=== PATIENT | female | born 1935 | race Caucasian/White ===

== ENCOUNTER 2016-08-28 10:30 | Outpatient (CLI) | payer MEDICARE | END 2016-08-28 10:31 | disposition home or self-care (01) | LOC: LAB.R 10:30 | PROVIDERS: ATTEND Family Medicine | DX: J31.0 Chronic rhinitis (principal) | CPT/HCPCS: 87640 ==

== ENCOUNTER 2016-12-26 08:06 | Outpatient (CLI) | payer MEDICARE ==
[2016-12-26 13:42] LABS: BASOPHILS % (AUTO) 0.9 %; EOSINOPHILS # (AUTO) 0.3 10^3/uL (0.0-0.7); EOSINOPHILS % (AUTO) 4.7 %; HCT - HEMATOCRIT 40.5 % (37.0-47.0); HGB - HEMOGLOBIN 13.1 g/dL (12.0-16.0); LYMPHOCYTES # (AUTO) 2.1 10^3/uL (1.5-3.5); LYMPHOCYTES % (AUTO) 36.4 %; MEAN CORPUSCULAR HEMOGLOBIN 28.8 pg (27.0-31.0); MEAN CORPUSCULAR HGB CONC 32.3 g/dL (32.0-36.0); MEAN CORPUSCULAR VOLUME 89.2 fL (81.0-99.0); MEAN PLATELET VOLUME 9.1 fL (7.9-10.8); MONOCYTES # (AUTO) 0.4 10^3/uL (0.0-1.0); MONOCYTES % (AUTO) 7.8 %; NEUTROPHILS # (AUTO) 2.8 10^3/uL (1.5-6.6); NEUTROPHILS % (AUTO) 50.2 %; NUCLEATED RED BLOOD CELLS AUTO 0.1 /100WBC; RED BLOOD COUNT 4.53 10^6/uL (4.20-5.40); RED CELL DISTRIBUTION WIDTH 14.4 % (12.0-15.0); UNCORRECTED WHITE BLOOD COUNT 5.6 x10^3/uL; WHITE BLOOD COUNT 5.6 x10^3/uL (4.8-10.8)
[2016-12-26 14:23] LABS: ALBUMIN/GLOBULIN RATIO 1.5 (1.0-2.2); BILIRUBIN,TOTAL 0.5 mg/dL (0.2-1.0); BUN - BLOOD UREA NITROGEN 16 mg/dL (6-20); CARBON DIOXIDE - CO2 27 mmol/L (21-32); CHLORIDE 105 mmol/L (101-111); CHOL/HDL RATIO 2.5 (<4.4); CHOLESTEROL 145 mg/dL; CREATININE 0.8 mg/dL (0.4-1.0); GFR - MDRD 69 (>89); GLUCOSE 94 mg/dL (70-100); HDL CHOLESTEROL 58 mg/dL; LDL/HDL RATIO 1.3 (<4.4); POTASSIUM 4.3 mmol/L (3.5-5.0); SODIUM 139 mmol/L (135-145); TOTAL PROTEIN 6.4 g/dL (6.7-8.2); TRIGLYCERIDES 59 mg/dL; VLDL CHOLESTEROL 12 mg/dL
== END 2016-12-26 08:07 | disposition home or self-care (01) ==
LOC: LAB.WCP 08:06
PROVIDERS: ATTEND Family Medicine
DX: I10 Essential (primary) hypertension (principal); E78.5 Hyperlipidemia, unspecified
CPT/HCPCS: 36415; 80053; 80061; 85025

== ENCOUNTER 2017-01-06 10:28 | Outpatient (CLI) | payer MEDICARE ==
--- NOTE | 2017-01-08 08:33 | Mammography Report ---
WAS FLAGGED FOR "WHICH NORMAL BILAT. SCR. MAMMOGRAM" WITH COMPARISON=B(FATTY 1B, FIBROGLANDULAR 2B, HETEROGENEOUS 3B, EXTREMELY DENSE = 4B DIGITAL BILATERAL SCREENING MAMMOGRAM: 01/06/2017 COMPARISON STUDY: Mammogram 12/05/2015. CLINICAL INDICATION: Screening Mammography Technique: Bilateral MLO and CC breast views. Ther are scattered fibroglandular densities. There is no mass, architectural distortion, or concerning cluster of microcalcifications. There are stable postoperative changes of the left breast. IMPRESSION: BIRADS CATEGORY 2, BENIGN FINDINGS. Recommend annual screening mammogram. JOB #: [id number] EXT JOB #: [id number] [email or web address]
== END 2017-01-06 10:29 | disposition home or self-care (01) ==
LOC: DI.N 10:28
PROVIDERS: ATTEND Family Medicine
DX: Z12.31 Encounter for screening mammogram for malignant neoplasm of breast (principal)
CPT/HCPCS: 77067

== ENCOUNTER 2017-04-28 08:00 | Outpatient (CLI) | payer MEDICARE ==
[2017-04-28 19:02] LABS: BASOPHILS % (AUTO) 0.7 %; EOSINOPHILS # (AUTO) 0.2 10^3/uL (0.0-0.7); EOSINOPHILS % (AUTO) 2.8 %; HGB - HEMOGLOBIN 13.8 g/dL (12.0-16.0); LYMPHOCYTES # (AUTO) 2.7 10^3/uL (1.5-3.5); LYMPHOCYTES % (AUTO) 41.6 %; MEAN CORPUSCULAR HEMOGLOBIN 28.3 pg (27.0-31.0); MEAN CORPUSCULAR VOLUME 88.3 fL (81.0-99.0); MEAN PLATELET VOLUME 8.8 fL (7.9-10.8); MONOCYTES # (AUTO) 0.4 10^3/uL (0.0-1.0); MONOCYTES % (AUTO) 6.3 %; NEUTROPHILS # (AUTO) 3.1 10^3/uL (1.5-6.6); NEUTROPHILS % (AUTO) 48.6 %; PLT - PLATELET COUNT 251 10^3/uL (130-450); RED BLOOD COUNT 4.89 10^6/uL (4.20-5.40); RED CELL DISTRIBUTION WIDTH 14.5 % (12.0-15.0); WHITE BLOOD COUNT 6.4 x10^3/uL (4.8-10.8)
[2017-04-28 19:32] LABS: BUN - BLOOD UREA NITROGEN 23 mg/dL (6-20); CALCIUM 9.1 mg/dL (8.5-10.3); CARBON DIOXIDE - CO2 28 mmol/L (21-32); CHLORIDE 107 mmol/L (101-111); CREATININE 0.9 mg/dL (0.4-1.0); GFR - MDRD 60 (>89); GLUCOSE 97 mg/dL (70-100); SODIUM 141 mmol/L (135-145); URIC ACID 5.3 mg/dL (2.6-7.2)
[2017-04-28 19:33] LABS: CRP - C-REACTIVE PROTEIN < 1.0 mg/dL (0-1.0)
== END 2017-04-28 08:01 | disposition home or self-care (01) ==
LOC: LAB.WCP 08:00
PROVIDERS: ATTEND Family Medicine
DX: M79.676 Pain in unspecified toe(s) (principal); R51 Headache
CPT/HCPCS: 36415; 80048; 84550; 85025; 85651; 86140

== ENCOUNTER 2017-05-05 07:45 | Outpatient (CLI) | payer MEDICARE ==
--- NOTE | 2017-05-05 09:36 | MRI Report ---
EXAM: MRI BRAIN WITHOUT CONTRAST EXAM DATE: 05/05/2017 08:29 AM. CLINICAL HISTORY: 81-year-old woman with headache and TIAs. COMPARISON: 03/21/2007. TECHNIQUE: Multiplanar, multisequence T1-weighted and fluid-sensitive MR sequences of the brain were performed. Sequences optimized for routine evaluation. Other: None. IV Contrast: None. FINDINGS: Parenchyma: No evidence of acute infarct on diffusion weighted sequence. The parenchyma demonstrates multiple foci of FLAIR hyperintensity in the periventricular and deep cerebral white matter. One lesi on in particular in the right frontal periventricular white matter is round and demonstrates prominen t T1 hypointensity, consistent with remote lacunar infarct or demyelinating plaque. The infratentoria l parenchyma is normal in appearance. No evidence of prior hemorrhage on susceptibility weighted sequ ence. Pituitary: Unremarkable. Ventricles and Extra-axial Spaces: Ventricles are symmetric and normal in size for age. Extra-axial s paces are unremarkable. Orbits: Unremarkable. Sinuses: Paranasal sinuses and mastoid air cells are clear. Major Vascular Flow Voids: Intact. IMPRESSION: 1. No acute intracranial abnormalities. Specifically, no evidence of acute infarct, hemorrhage, or ma ss lesion. 2. Multiple foci of FLAIR hyperintensity are present in the periventricular and deep cerebral white m atter, a nonspecific finding commonly seen in this age group. 1 in particular in the right frontal lo be may represent a remote lacunar infarct or demyelinating plaque. [facility] Referring Provider Line: [phone] SITE ID: [id number]
== END 2017-05-05 07:46 | disposition home or self-care (01) ==
LOC: DI 07:45
PROVIDERS: ATTEND Family Medicine
DX: R51 Headache (principal); Z86.73 Personal history of transient ischemic attack (TIA), and cerebral infarction without residual deficits
CPT/HCPCS: 70551

== ENCOUNTER 2018-01-14 10:25 | Outpatient (CLI) | payer MEDICARE ==
[2018-01-14 18:17] LABS: CALCIUM 9.1 mg/dL (8.5-10.3); CREATININE 0.6 mg/dL (0.4-1.0)
== END 2018-01-14 10:26 | disposition home or self-care (01) ==
LOC: LAB 10:25
PROVIDERS: ATTEND Nurse Practitioner
DX: R00.2 Palpitations (principal); M79.605 Pain in left leg; R06.02 Shortness of breath
CPT/HCPCS: 36415; 80048

== ENCOUNTER 2018-01-14 17:48 | Outpatient (CLI) | payer MEDICARE ==
[2018-01-14] MEDS ORDERED: IOPAMIDOL-300 100 ML VIAL ONE (18:27)
[2018-01-14] MEDS ORDERED: IOPAMIDOL-300 100 ML VIAL IVP ONE (18:46)
--- NOTE | 2018-01-14 19:06 | CT Report ---
Reason: PALPITATIONS, LEG PAIN, LEFT, SOB Procedure Date: 01/14/2018 Accession Number: [id number] / [id number] Procedure: CT - Chest Angio (PE) CPT Code: FULL RESULT: EXAM: CT ANGIOGRAM CHEST EXAM DATE: 01/14/2018 06:44 PM. CLINICAL HISTORY: Palpitations, left leg pain, shortness of breath. COMPARISON: None. TECHNIQUE: Routine helical imaging was performed through the chest in the pulmonary arterial phase. IV Contrast: ISOVUE 300 80mL. Reconstructions: Coronal 3-D MIP reconstructions.Sagittal and coronal. In accordance with CT protocol optimization, one or more of the following dose reduction techniques were utilized for this exam: automated exposure control, adjustment of mA and/or KV based on patient size, or use of iterative reconstructive technique. FINDINGS: Pulmonary Arteries: Diagnostic quality: Adequate through the segmental arteries. No evidence for acute or chronic pulmonary emboli. RV/LV is within normal limits. There is no interventricular septal bowing. There is no reflux of contrast material in the IVC. Lungs/Pleura: There is elevation of the right hemidiaphragm with atelectatic changes at the lung base. There is a calcified right lower lobe granuloma. The lungs demonstrate mosaic attenuation; however, no confluent consolidation. No suspicious lung nodules. No pleural effusion or pneumothorax. Mediastinum: Normal heart size. No pericardial effusion. Calcified mediastinal lymph nodes noted. Thoracic Aorta: Unremarkable. Upper Abdomen: The gallbladder has been removed. Other: Enlarged right thyroid lobe. IMPRESSION: 1. No pulmonary embolism. 2. Nonspecific mosaic lung attenuation. Differential considerations include, but not limited to air trapping, edema and groundglass opacities secondary to infectious/inflammatory etiologies. 4. Enlarged right thyroid lobe. [facility]
--- NOTE | 2018-01-14 21:08 | Ultrasound Report ---
Reason: PALPITATIONS, LEG PAIN, LEFT, SOB Procedure Date: 01/14/2018 Accession Number: [id number] / [id number] Procedure: US - Duplex Ext Veins Left CPT Code: FULL RESULT: EXAM: LEFT LOWER EXTREMITY VENOUS ULTRASOUND EXAM DATE: 01/14/2018 08:06 PM. CLINICAL HISTORY: Left leg pain. Shortness of breath. Palpitations. COMPARISON: None. TECHNIQUE: Real-time sonographic vascular imaging was performed by the [employer] operator through the lower extremity utilizing both color-flow and Doppler spectral analysis. Multiple customer support representative static images were saved for review. FINDINGS: Common Femoral Vein (CFV): Normal. CFV-GSV Junction: Normal. Profunda Femoral Vein (PFV): Normal. Femoral Vein (FV) Prox: Normal. Femoral Vein (FV) Mid: Limited visualization. Femoral Vein (FV) Dist: Limited visualization. Popliteal Vein: Normal. Posterior Tibial Veins: Limited visualization. Peroneal Veins: Limited visualization. IMPRESSION: No evidence for deep venous thrombosis. [facility]
== END 2018-01-14 17:49 | disposition home or self-care (01) ==
LOC: DI 17:48
PROVIDERS: ATTEND Nurse Practitioner
DX: R00.2 Palpitations (principal); M79.605 Pain in left leg; R06.02 Shortness of breath; E04.9 Nontoxic goiter, unspecified
CPT/HCPCS: 36415; 71275; 80048; 93971; Q9967

== ENCOUNTER 2018-01-19 08:23 | Outpatient (CLI) | payer MEDICARE ==
--- NOTE | 2018-01-20 12:12 | XRAY Report ---
Reason: LEG PAIN,LEFT,DEGENERATIVE DISC DISEASE,LUMBAR SP Procedure Date: 01/19/2018 Accession Number: [id number] / [id number] Procedure: XR - Lumbar Spine 2 View CPT Code: FULL RESULT: EXAM: LUMBOSACRAL SPINE RADIOGRAPHY EXAM DATE: 01/19/2018 08:39 AM. CLINICAL HISTORY: Left legg pain. Degenerative lumbar disk disease. COMPARISONS: LUMBAR SPINE 2 VIEW 11/05/2015 3:06 PM. TECHNIQUE: 3 views. FINDINGS: Alignment: Severe lumbar levoconvex scoliosis centered about L3 appears similar to 2016. There is approximately 5 mm of retrolisthesis of L5 on L6. Bones: 6 dpo-hds-dbulahg lumbar vertebral bodies are present due to lumbarization of S1/L6. No fractures or bone lesions. Disks: There is multilevel loss of disk space height asymmetrically in keeping with severe scoliosis. Facets: Severe facet arthropathy is noted in the lower lumbar spine. Sacroiliac Joints: Unremarkable. Soft Tissues: There is marked aortic atherosclerosis. IMPRESSION: Redemonstration of severe levoconvex lumbar scoliosis. [facility]
--- NOTE | 2018-01-20 12:40 | XRAY Report ---
Reason: LEG PAIN,LEFT,DEGENERATIVE DISC DISEASE,LUMBAR SP Procedure Date: 01/19/2018 Accession Number: [id number] / [id number] Procedure: XR - Hip w/Pelvis 2-3V LT CPT Code: FULL RESULT: EXAM: LEFT HIP AND PELVIS RADIOGRAPHY EXAM DATE: 01/19/2018 08:39 AM. HISTORY: LEG PAIN,LEFT,DEGENERATIVE DISC DISEASE,LUMBAR SP. COMPARISONS: None. TECHNIQUE: 1 view of the pelvis and 1 view of the hip. FINDINGS: Bones: Transitional vertebra, with sacralization of the transverse process at L5 on the left.. No fracture or bone lesion. Joints: The bilateral hip, pubis symphysis, and sacroiliac joints are preserved. There is some sclerosis of the acetabular roofs, bilaterally. Some tiny osteophytes off of the acetabulum. Soft Tissues: Some calcifications in the pelvis may be phleboliths or vascular. IMPRESSION: Mild osteoarthritis of both hips, no fracture or dislocation. [facility]
== END 2018-01-19 08:24 | disposition home or self-care (01) ==
LOC: DI 08:23
PROVIDERS: ATTEND Nurse Practitioner
DX: M16.0 Bilateral primary osteoarthritis of hip (principal); M51.36 Other intervertebral disc degeneration, lumbar region; M47.9 Spondylosis, unspecified; M41.9 Scoliosis, unspecified
CPT/HCPCS: 72100

== ENCOUNTER 2018-02-16 17:32 | Outpatient (CLI) | payer MEDICARE ==
[2018-02-16] MEDS ORDERED: GADOBUTROL 7.5 MMOL/7.5 ML VIAL ONE (17:58)
[2018-02-16] MEDS ORDERED: GADOBUTROL 7.5 MMOL/7.5 ML VIAL IVP ONE (18:47)
--- NOTE | 2018-02-17 14:42 | MRI Report ---
Reason: LEG WEAKNESS, LEG PAIN, DDD, LEFT LEG Procedure Date: 02/16/2018 Accession Number: [id number] / [id number] Procedure: MRI - Lumbar Spine W/WO CPT Code: FULL RESULT: EXAM: MRI LUMBAR SPINE WITHOUT AND WITH CONTRAST EXAM DATE: 02/16/2018 07:06 PM. CLINICAL HISTORY: LEG WEAKNESS, LEG PAIN, DDD, LEFT LEG. COMPARISONS: LUMBAR SPINE 07/06/2008 10:19 AM. TECHNIQUE: Multiplanar, multisequence T1-weighted and fluid-sensitive sequences of the lumbar spine from T12 to S1 before and after administration of intravenous contrast. Other: None. IV contrast: 7.5 cc Gadavist. FINDINGS: Neurologic Structures: The conus terminates at L1. The conus medullaris and cauda equina are unremarkable. Alignment: 1. Levoscoliosis lumbar spine 36 degrees centered at L2, which is compared to the 26 degree levoscoliosis lumbar spine 07/06/2008. 2. Left lateral subluxation 1 cm L3 on L4. 3. Right lateral subluxation 6 mm L1 on L2. 4. Right lateral subluxation 9 mm L1 on L2. Bone Marrow: Five [id number] lumbar vertebral bodies are assumed. No gross fractures or bone lesions. Focal L2 vertebral body 1.8 cm well-marginated decreased marrow signal which enhances following intravenous contrast and corresponds to increased signal on the STIR sequence is strongly suspicious for metastasis and is new as compared to the MRI lumbar spine 07/06/2008. Disk Levels/Facets: T12-L1: Moderate right foraminal stenosis. Negative for central spinal canal stenosis. Moderate disk degeneration. L1-L2: Severe disk degeneration. Negative for spinal canal stenosis. Moderate right facet joint arthrosis. The left intervertebral foramen is negative for stenosis. Severe right foraminal stenosis from disk degeneration and facet hypertrophy. L2-L3: Severe disk degeneration. Retrolisthesis 3 mm L2 on L3. Severe right foraminal stenosis from disk degeneration and facet degenerative hypertrophy. Mild left foraminal stenosis. Moderate right facet joint arthrosis. Negative for central spinal canal stenosis. L3-L4: Moderate disk degeneration. Anterolisthesis of 3 mm L3 on L4. Severe right facet joint arthrosis. Severe left foraminal stenosis. Moderate right foraminal stenosis. Negative for spinal canal stenosis. L4-L5: Severe disk degeneration. Left laminectomy defect. Mild right foraminal stenosis from foraminal 3 mm disk protrusion osteophyte complex and disk degeneration. Moderate left foraminal stenosis from disk degeneration and facet hypertrophy. L5-S1: Severe disk degeneration. Severe bilateral foraminal stenosis. Left laminectomy defect. Mild facet joint arthrosis. Spinal Canal: No enhancing masses within the spinal canal. No epidural abscess. Musculature: Severe sacrum posterior left paraspinal muscle atrophy with fatty replacement. Other: The visualized retroperitoneum is unremarkable. Mid posterior left kidney 3.2 cm cyst. IMPRESSION: 1. Focal enhancing 1.8 cm nodule L2 vertebral body strongly suspicious for osseous metastasis. Correlate with cancer history. Consider nuclear medicine whole body bone scan to assess for additional metastasis. 2. Negative for spinal canal stenosis or foraminal stenosis. 3. Negative for enhancing leptomeningeal metastasis. 4. Levoscoliosis 36 degrees lumbar spine centered at L2. 5. Diffuse severe lumbar disk degeneration. 6. Severe right L1-L2, severe right L2-L3, severe left L3-L4, moderate right L3-L4, moderate left L4-L5 and severe bilateral L5-S1 foraminal stenosis. Comment: The following findings are so common in adults without low back pain that while we report their presence, they must be interpreted with caution and in the context of the clinical situation. (Reference Tyeshavik et al, Spine 2001) Prevalence of findings in patients without low back pain: Disk degeneration (any evidence): 92% Disk desiccation/T2 signal loss: 83% Disk height loss: 56% Disk bulge: 64% Disk protrusion: 32% Annular tear/high intensity zone: 38% [facility]
== END 2018-02-16 17:33 | disposition home or self-care (01) ==
LOC: DI 17:32
PROVIDERS: ATTEND Nurse Practitioner
DX: G83.14 Monoplegia of lower limb affecting left nondominant side (principal); M79.605 Pain in left leg; M51.36 Other intervertebral disc degeneration, lumbar region; M48.061 Spinal stenosis, lumbar region without neurogenic claudication; M41.86 Other forms of scoliosis, lumbar region; M89.8X8 Other specified disorders of bone, other site
CPT/HCPCS: 72158; A9585

== ENCOUNTER 2018-02-23 09:37 | Outpatient (CLI) | payer MEDICARE ==
[2018-02-23] MEDS ORDERED: IOVERSOL 320 100 ML VIAL IVP ONE ×2 (10:20→13:02)
[2018-02-23] MEDS ORDERED: IOVERSOL 320 50 ML VIAL ONE (10:20)
[2018-02-23 10:28] LABS: CALCIUM 9.1 mg/dL (8.5-10.3); CREATININE 0.8 mg/dL (0.4-1.0)
[2018-02-23] MEDS ORDERED: IOVERSOL 320 50 ML VIAL PO ONE (13:02)
--- NOTE | 2018-02-23 16:48 | CT Report ---
Reason: BONE LESION Procedure Date: 02/23/2018 Accession Number: [id number] / [id number] Procedure: CT - Abdomen/Pelvis W/ CPT Code: FULL RESULT: EXAM: CT ABDOMEN AND PELVIS EXAM DATE: 02/23/2018 11:43 AM. CLINICAL HISTORY: BONE LESION. COMPARISONS: LUMBAR SPINE W/WO 02/16/2018 6:21 PM. TECHNIQUE: Routine helical CT imaging was performed through the abdomen and pelvis. IV contrast: opti 320 90mL. Enteric contrast: No. Reconstructions: Coronal and sagittal. In accordance with CT protocol optimization, one or more of the following dose reduction techniques were utilized for this exam: automated exposure control, adjustment of mA and/or KV based on patient size, or use of iterative reconstructive technique. FINDINGS: Lung Bases: Linear consolidation at the right lung base in the setting of a partially imaged 1.5 cm right hilar calcification. This is possibly postobstructive atelectasis due to a calcified hilar lymph node. Correlate to history of prior granulomatous disease. Liver: Normal. No masses. Gallbladder/Bile Ducts: Mild intra-and extrahepatic biliary ductal dilation in the setting of status post cholecystectomy, possibly a normal finding. Spleen: Calcifications or evidence of prior granulomatous disease. Pancreas: Normal. Adrenal Glands: Normal. Kidneys: Bilateral renal cysts. No hydronephrosis or suspicious mass. Peritoneal Cavity/Bowel: Diverticulosis without diverticulitis. No free fluid, free air or adenopathy. No masses or acute inflammatory process. The appendix is well visualized and normal. Pelvic Organs: Normal. The bladder and visualized pelvic organs are within normal limits. Vasculature: No aneurysms or other significant abnormality. Bones: Severe levoconvex scoliosis centered about L2. The previously identified lesion on the February MRI is demonstrated to be osseous matrix poor and nonspecific. No additional osseous lesions are identified. Other: None. IMPRESSION: No suspicious primary soft tissue mass is seen. No additional osseous masses are identified. The etiology of the identified mass remains unclear. Please note that this mass was not definitely present on the 2008 lumbar spine MRI. Given these findings, further workup is recommended. Options include imaging of the remaining spine by MRI, short interval follow-up for change of the identified lesion or biopsy of the single identified lesion which is technically challenging. [facility] The above findings of possible osseous mass and its workup were discussed with Faith Allen by Dr. Beto Metzger at 16:46 hrs on 02/23/18.
== END 2018-02-23 09:38 | disposition home or self-care (01) ==
LOC: LAB 09:37 → DI 09:38
PROVIDERS: ATTEND Nurse Practitioner
DX: M89.9 Disorder of bone, unspecified (principal)
CPT/HCPCS: 36415; 74177; 80048; Q9967

== ENCOUNTER 2018-02-26 08:00 | Outpatient (CLI) | payer MEDICARE ==
[2018-02-26 13:20] LABS: BASOPHILS % (AUTO) 0.7 %; EOSINOPHILS # (AUTO) 0.2 10^3/uL (0.0-0.7); EOSINOPHILS % (AUTO) 3.4 %; HGB - HEMOGLOBIN 13.4 g/dL (12.0-16.0); LYMPHOCYTES # (AUTO) 2.7 10^3/uL (1.5-3.5); LYMPHOCYTES % (AUTO) 46.3 %; MEAN CORPUSCULAR HEMOGLOBIN 30.1 pg (27.0-31.0); MEAN CORPUSCULAR HGB CONC 33.7 g/dL (32.0-36.0); MEAN CORPUSCULAR VOLUME 89.3 fL (81.0-99.0); MEAN PLATELET VOLUME 9.6 fL (7.9-10.8); MONOCYTES # (AUTO) 0.4 10^3/uL (0.0-1.0); MONOCYTES % (AUTO) 6.4 %; NEUTROPHILS # (AUTO) 2.5 10^3/uL (1.5-6.6); NEUTROPHILS % (AUTO) 43.2 %; PLT - PLATELET COUNT 225 10^3/uL (130-450); RED BLOOD COUNT 4.44 10^6/uL (4.20-5.40); RED CELL DISTRIBUTION WIDTH 14.7 % (12.0-15.0); WHITE BLOOD COUNT 5.8 x10^3/uL (4.8-10.8)
[2018-02-26 14:15] LABS: ALBUMIN 4.1 g/dL (3.2-5.5); ALBUMIN/GLOBULIN RATIO 1.9 (1.0-2.2); BILIRUBIN,TOTAL 0.4 mg/dL (0.2-1.0); CALCIUM 9.1 mg/dL (8.5-10.3); CREATININE 0.8 mg/dL (0.4-1.0); TOTAL PROTEIN 6.3 g/dL (6.7-8.2)
== END 2018-02-26 23:59 | disposition home or self-care (01) ==
LOC: LAB.WCP 08:00
PROVIDERS: ATTEND Nurse Practitioner
DX: M89.9 Disorder of bone, unspecified (principal)
CPT/HCPCS: 36415; 80053; 84155; 84165; 85025

== ENCOUNTER 2018-03-04 08:00 | Outpatient (CLI) | payer MEDICARE | END 2018-03-04 23:59 | disposition home or self-care (01) | LOC: LAB.R 08:00 | PROVIDERS: ATTEND Nurse Practitioner | DX: M89.9 Disorder of bone, unspecified (principal) | CPT/HCPCS: 81599; 82570; 84156; 84166; 86335 ==

== ENCOUNTER 2018-03-23 07:36 | Outpatient (CLI) | payer MEDICARE ==
[2018-03-23] MEDS ORDERED: GADOBUTROL 7.5 MMOL/7.5 ML VIAL ONE (07:51)
[2018-03-23] MEDS ORDERED: GADOBUTROL 7.5 MMOL/7.5 ML VIAL IVP ONE (09:17)
--- NOTE | 2018-03-23 12:56 | MRI Report ---
Reason: BONE LESION,LEG WEAKNESS,LEFT,LEG PAIN,LEFT,LOW BA Procedure Date: 03/23/2018 Accession Number: [id number] / [id number] Procedure: MRI - Thoracic Spine W/WO CPT Code: FULL RESULT: EXAM: MRI THORACIC SPINE WITHOUT AND WITH CONTRAST EXAM DATE: 03/23/2018 10:19 AM. CLINICAL HISTORY: Bone lesion, low back pain. Left leg weakness. Left leg pain. COMPARISONS: MRI cervical spine and lumbar spine from today. TECHNIQUE: Multiplanar, multisequence T1-weighted and fluid-sensitive sequences of the thoracic spine from C7 to L1 before and after administration of intravenous contrast. Other: None. IV contrast: 7.5 mL Gadavist. FINDINGS: A T2 hyperintensity in each kidney might well reflect a cortical cyst. Intrahepatic and extrahepatic biliary duct dilatation is present. There is dilatation of the pancreatic duct. No abnormal T2 signal or enhancement is identified within the thoracic spinal cord. No suspicious marrow replacement is seen in the thoracic vertebral bodies. Rightward curvature is seen involving the lower thoracic spine and leftward curvature is seen involving the upper lumbar spine. Loss of disk space height is seen at multiple levels, most evident in the mid and lower thoracic spine Posterior disk protrusions are seen at multiple levels in the thoracic spine. This is greatest at T10-T11. No central canal stenosis is present in the thoracic spine. IMPRESSION: 1. Posterior disk protrusions are seen at multiple levels most evident at T10-T11. 2. No central canal or foraminal stenosis. 3. No suspicious marrow replacement is present. 4. No abnormal signal or enhancement is seen the thoracic spinal cord. 5. S-type scoliosis is seen involving the mid to lower thoracic and upper lumbar spine. 6. Intrahepatic biliary duct, extrahepatic biliary duct, and pancreatic duct dilatation are seen. This is seen down to the level of the ampulla where there is abrupt tapering. 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 [facility]
--- NOTE | 2018-03-23 12:56 | MRI Report ---
Reason: BONE LESION,LEG WEAKNESS,LEFT,LEG PAIN,LEFT,LOW BA Procedure Date: 03/23/2018 Accession Number: [id number] / [id number] Procedure: MRI - Cervical Spine W/WO CPT Code: FULL RESULT: EXAM: MRI CERVICAL SPINE WITHOUT AND WITH CONTRAST EXAM DATE: 03/23/2018 10:21 AM. CLINICAL HISTORY: Bone lesion, leg weakness, left leg pain, low back pain. COMPARISON: MRI thoracic spine and lumbar spine from today. MRI lumbar spine 02/16/2018 and 07/06/2008. TECHNIQUE: Multiplanar, multisequence T1-weighted and fluid-sensitive sequences of the cervical spine before and after administration of intravenous contrast. Other: None. IV contrast: 7.5 cc Gadavist. FINDINGS: There is some motion degradation of the study. The right thyroid lobe is enlarged and contains T2 hyperintense nodules. C2-C3: No posterior disk protrusion. No stenosis. C3-C4: A minimal posterior disk protrusion is seen. Disk/osteophyte complex formation is seen involving the posterior lateral margin of the disk. Bilateral uncovertebral joint spurring is seen. Left facet hypertrophy is present. No stenosis. C4-C5: Minimal posterior disk protrusion is seen. Bilateral uncovertebral joint spurring is seen. Right foraminal stenosis. No central canal stenosis. C5-C6: A minimal posterior protrusion of disk and osteophyte is seen involving the posterior and posterior lateral margin of the disk. Bilateral uncovertebral joint spurring is seen. Left foraminal narrowing is seen. Right foraminal stenosis is present. No central canal stenosis. C6-C7: Uncovertebral joint spurring is seen on the right. Minimal disk/osteophyte complex formation is seen involving the right posterior lateral margin of the disk. Right foraminal stenosis is present. C7-T1: Minimal posterior disk protrusion is seen. No stenosis. Grade 1 anterolisthesis of C3 relative to C4 and C4 relative to C5 is noted. Grade 1 retrolisthesis of C5 relative to C6 is evident. No suspicious marrow replacement is present. Loss of disk space height is seen at C5-C6 and C6-C7. Anterior disk protrusion and osteophyte formation is seen, most evident at C5-C6. Buckling of ligamentum flavum is seen at multiple levels,, most evident at C5-C6 and C3-C4. Accounting for motion artifact, no abnormal T2 signal or enhancement is identified in the cervical spinal cord. IMPRESSION: 1. Degenerative disk disease, osteophyte formation, and uncovertebral joint spurring are present at multiple levels and are discussed in detail above. 2. No central canal stenosis is present. 3. Foraminal stenosis is present on the right at C4-C5, C5-C6, and C6-C7 4. The right thyroid lobe is diffusely enlarged and contains small thyroid nodules. MRI cannot distinguish benign from malignant thyroid disease. [facility]
--- NOTE | 2018-03-23 15:59 | MRI Report ---
Reason: BONE LESION,LEG WEAKNESS,LEFT,LEG PAIN,LEFT,LOW BA Procedure Date: 03/23/2018 Accession Number: [id number] / [id number] Procedure: MRI - Lumbar Spine W/WO CPT Code: FULL RESULT: EXAM: MRI LUMBAR SPINE WITHOUT AND WITH CONTRAST EXAM DATE: 03/23/2018 10:17 AM. CLINICAL HISTORY: Bone lesion, left weakness, leg pain, left, low BA. COMPARISONS: MRI lumbar spine 02/16/2018 and 07/06/2008. TECHNIQUE: Multiplanar, multisequence T1-weighted and fluid-sensitive sequences of the lumbar spine from T12 to S1 before and after administration of intravenous contrast. Other: None. IV contrast: 7.5 cc Gadavist. FINDINGS: Leftward curvature is seen centered over L3. Multilevel spondylolisthesis is unchanged. There is a 1.6 cm focus of low T1 weighted signal which demonstrates avid enhancement and T2 hyperintense signal in the right aspect of the L3 vertebral body. This is not present on the comparison study from 2008. It is unchanged in size since the more recent comparison study No new area of abnormal enhancement is seen in the lumbar vertebral body marrow. No acute or subacute endplate infraction is present. No abnormal enhancement is seen in the conus medullaris. No nodular enhancement is seen along the cauda equina nerve roots. T12-L1: A minimal posterior disk protrusion is seen towards the left with extension into the foramen. Proximal foraminal narrowing is seen. No central canal stenosis. This is unchanged since the comparison study. L1-L2: A mild posterior disk protrusion is seen. There is some associated osteophyte formation particularly towards the right. Proximal right foraminal narrowing is seen. No central canal stenosis. The superior lateral recess narrowing is seen bilaterally greater on the left relative to the right. No central canal stenosis. L2-L3: A mild posterior disk protrusion is seen. There is osteophyte formation particularly towards the right. Right foraminal narrowing is seen. Left foraminal narrowing is seen. There has been a laminectomy on the left at this level. No central canal stenosis. L4-L5: Minimal posterior disk protrusion is seen. Mild left foraminal stenosis. Right foraminal narrowing. Posterior elements on the left have been surgically altered. No central canal stenosis. L5-S1: A foraminal protrusion is seen bilaterally. There is bilateral foraminal stenosis present greater on the right relative to the left. No central canal stenosis. Facet/ligamentum flavum hypertrophy are present throughout the lumbar spine. IMPRESSION: 1. Stable MRI lumbar spine. 2. Degenerative disk disease throughout the lumbar spine is again seen without central canal stenosis. 3. Multilevel foraminal stenosis is noted. This is stable. 4. No new posterior disk protrusion has developed. 5. Again seen is an enhancing lesion in the L2 vertebral body to the right of midline. This is not changed in size since the more recent comparison study. It is new since more remote comparison study. A neoplastic etiology, such as a metastatic deposit or focus of myeloma is not excluded. 6. No new area of marrow signal abnormality or enhancement has developed in the interim. Comment: The following findings are so common in adults without low back pain that while we report their presence, they must be interpreted with caution and in the context of the clinical situation. (Reference Kerak et al, Spine 2001) Prevalence of findings in patients without low back pain: Disk degeneration (any evidence): 92% Disk desiccation/T2 signal loss: 83% Disk height loss: 56% Disk bulge: 64% Disk protrusion: 32% Annular tear/high intensity zone: 38% [facility]
== END 2018-03-23 07:37 | disposition home or self-care (01) ==
LOC: DI 07:36
PROVIDERS: ATTEND Nurse Practitioner
DX: M50.21 Other cervical disc displacement, high cervical region (principal); M50.31 Other cervical disc degeneration, high cervical region; M48.02 Spinal stenosis, cervical region; M47.9 Spondylosis, unspecified; E04.2 Nontoxic multinodular goiter; M51.34 Other intervertebral disc degeneration, thoracic region; M51.24 Other intervertebral disc displacement, thoracic region; K86.89 Other specified diseases of pancreas; M41.9 Scoliosis, unspecified; M51.26 Other intervertebral disc displacement, lumbar region; M51.36 Other intervertebral disc degeneration, lumbar region; M48.061 Spinal stenosis, lumbar region without neurogenic claudication; M89.9 Disorder of bone, unspecified
CPT/HCPCS: 72156; 72157; 72158; A9585

== ENCOUNTER 2018-03-31 08:41 | Outpatient (CLI) | payer MEDICARE ==
--- NOTE | 2018-04-01 15:00 | Mammography Report ---
Reason: SCREENING MAMMO Procedure Date: 03/31/2018 Accession Number: [id number] / [id number] Procedure: [facility]N - Screening Mammo Dig Bilat CPT Code: FULL RESULT: EXAM: Screening Mammo Dig Bilat DATE: 03/31/2018 9:08 AM CLINICAL HISTORY: Routine screening TECHNIQUE: Bilateral CC and MLO views were obtained. COMPARISON: 01/06/2017, 12/05/2015, 04/21/2014 and 03/01/2013 FINDINGS: There are scattered fibroglandular densities. No significant interval change. No suspicious masses, clustered microcalcifications, or regions of architectural distortion are identified. Scattered benign-appearing calcifications are stable. IMPRESSION: Benign findings RECOMMENDATION: Routine annual screening unless otherwise clinically indicated. BIRADS CATEGORY 2: Benign findings STANDARD QUALIFYING STATEMENTS: 1. This examination was reviewed with the aid of Computer-Aided Detection (CAD). 2. A negative or benign imaging report should not delay biopsy if clinically suspicious findings are present. Consider surgical consultation if warrented. More than 5% of cancers are not identified by imaging. 3. Dense breasts may obscure an underlying neoplasm.
== END 2018-03-31 08:42 | disposition home or self-care (01) ==
LOC: DI.N 08:41
DX: Z12.31 Encounter for screening mammogram for malignant neoplasm of breast (principal)
CPT/HCPCS: 77067

== ENCOUNTER 2018-04-04 14:43 | Outpatient (CLI) | payer MEDICARE ==
--- NOTE | 2018-04-04 16:31 | Ultrasound Report ---
Reason: THYROID NODULE,BONE LESION Procedure Date: 04/04/2018 Accession Number: [id number] / [id number] Procedure: US - Head or Neck Soft Tissue CPT Code: FULL RESULT: EXAM: THYROID ULTRASOUND EXAM DATE: 04/04/2018 03:29 PM. CLINICAL HISTORY: Thyroid nodule. Bone lesion. COMPARISON: CERVICAL SPINE W/WO 03/23/2018 8:11 AM. TECHNIQUE: Real time sonographic imaging of the thyroid was performed by the abrasive mixer. Multiple corporate sales representative static images were saved for review. FINDINGS: THYROID GLAND: Right Lobe: 5.0 x 3.1 x 3.7 cm, volume 29.8 cc. Heterogeneous background echotexture. Right Lobe Nodules: 1. Heterogeneous isoechoic solid nodule with small central cystic space, 1.3 x 1.1 x 1.3 cm. 2. Heterogeneous isoechoic solid nodule with small cystic spaces, midportion/inferior pole, 3.6 x 2.9 x 3.0 cm. Left Lobe: 4.5 x 1.1 x 1.3 cm, volume 3.3 cc. Heterogeneous background echotexture. Multiple small cysts, the largest 0.4 cm in the inferior pole. Left Lobe Nodules: None. Isthmus: 0.7 cm AP. Isthmic Nodules: None. LYMPH NODES: No adenopathy demonstrated in the central or lateral compartment. OTHER: None. IMPRESSION: 1. Two ANTOINETTE low suspicion sonographic pattern nodules in the right thyroid lobe. The dominant 3.6 cm nodule in the midportion/inferior pole meets criteria for tissue sampling with FNA. 2. Multiple subcentimeter cysts in the left thyroid lobe, benign finding. Management recommendations are based on 2015 [place] [employer] Management Guidelines for Adult Patients with Thyroid Nodules and Differentiated Thyroid Cancer. RADIA
== END 2018-04-04 14:44 | disposition home or self-care (01) ==
LOC: DI 14:43
PROVIDERS: ATTEND Family Medicine
DX: E04.2 Nontoxic multinodular goiter (principal)
CPT/HCPCS: 76536

== ENCOUNTER 2018-04-06 08:38 | Outpatient (CLI) | payer MEDICARE ==
--- NOTE | 2018-04-07 10:38 | Nuclear Medicine Report ---
Reason: THYROID NODULE,BONE LESION Procedure Date: 04/06/2018 Accession Number: [id number] / [id number] Procedure: NM - Bone Whole Body CPT Code: FULL RESULT: EXAM: BONE SCAN EXAM DATE: 04/06/2018 01:49 PM. CLINICAL HISTORY: THYROID NODULE,BONE LESION. L2 bone lesion on previous MRI. COMPARISON: LUMBAR SPINE W/WO 03/23/2018 9:05 AM. TECHNIQUE: Following the intravenous administration of 32.5 mCi of technetium 99m MDP and an appropriate delay, a whole-body scan was performed in anterior and posterior projections. Site-specific spot views of the region of interest were obtained in various projections. FINDINGS: Exam Quality: Normal overall osseous radiotracer uptake. Physiological tracer uptake in bilateral collecting systems. Skull: No focal uptake. Thorax: There is slightly heterogeneous uptake in the bilateral ribs without discrete suspicious lesions. No abnormal increased uptake in the sternum. Pelvis: No focal lesions. Spine: There is thoracolumbar scoliosis. There is a small focus of increased uptake in L2. There are foci of increased uptake along left margins of the lower thoracic spine and along the right lower margins of the mid lumbar spine corresponding with convex curvature. There is a focus of increased uptake on the right side at L3-L4 likely degenerative facet uptake. Extremities: There is a left knee prosthesis. There is asymmetric, intensely increased uptake in the right ankle or midfoot. IMPRESSION: 1. There is a small focus of increased uptake in L2. The size of the lesion appears smaller compared to the lesion noted on the MRI this is overall indeterminate for degenerative versus metastatic etiology. 2. There has complex scoliotic curvature of the thoracolumbar spine with associated degenerative endplate uptake at multiple levels. RADIA
== END 2018-04-06 08:39 | disposition home or self-care (01) ==
LOC: DI 08:38
PROVIDERS: ATTEND Family Medicine
DX: M89.9 Disorder of bone, unspecified (principal); M47.9 Spondylosis, unspecified; M41.55 Other secondary scoliosis, thoracolumbar region
CPT/HCPCS: 78306

== ENCOUNTER 2018-05-15 07:50 | Outpatient (CLI) | payer MEDICARE ==
[2018-05-15] MEDS ORDERED: GADOBUTROL 7.5 MMOL/7.5 ML VIAL ONE (08:08)
[2018-05-15] MEDS ORDERED: GADOBUTROL 7.5 MMOL/7.5 ML VIAL IVP ONE (08:32)
--- NOTE | 2018-05-16 18:25 | MRI Report ---
Reason: BONE LESION Procedure Date: 05/15/2018 Accession Number: [id number] / [id number] Procedure: MRI - Lumbar Spine W/WO CPT Code: FULL RESULT: EXAM: MRI LUMBAR SPINE WITHOUT AND WITH CONTRAST EXAM DATE: 05/15/2018 08:50 AM. CLINICAL HISTORY: Low back pain. History of bone lesion. COMPARISONS: 03/23/2018 MRI, bone scan 04/06/18, radiographs 01/29/2018, MRI 07/06/2008. TECHNIQUE: Multiplanar, multisequence T1-weighted and fluid-sensitive sequences of the lumbar spine from T12 to S1 before and after administration of intravenous contrast. Other: None. IV contrast: 7.5 mL Gadavist. FINDINGS: Neurologic Structures: The conus terminates at L1-L2. The conus medullaris and cauda equina are unremarkable. Alignment: An S-shaped thoracolumbar scoliosis is present. The leftward lumbar curvature is approximately 22 degrees based on the non-standing salvage inspector wood parts images of the present study. Bone Marrow: The prior radiograph demonstrates 6 hal-mxm-[id number] lumbar vertebral bodies. No fractures. Type 1 endplate change is at L1-L2. Type II endplate change is that L5-L6 and L6- S1, and L3-L4. Again demonstrated is a T2 hyperintense, T1 hypointense, enhancing lesion within the central portion of the L3 vertebral body. It measures 1.2 x 1.6 x 1.6 cm. On the 03/23/2018 examination it measured 1.2 x 1.3 x 1.6 cm. On the 02/16/2018 examination it measured 1.3 x 1.2 x 1.6 cm. Disk Levels/Facets: All visualized intervertebral disk are desiccated. T9-T10: Unremarkable. T10-T11: Anterior endplate spurring is accompanied by moderate disk height loss. A minimal posterior disk protrusion causes minimal spinal canal narrowing. Unchanged. T11-T12: Moderate disk height loss is accompanied by anterior endplate spurring. A posterior disk protrusion causes at least mild spinal canal narrowing as before. T12-L1: Unremarkable. L1-L2: Moderate disk height loss is accompanied by anterior endplate spurring. A broad-based disk bulge causes mild spinal canal narrowing. L2-L3: Moderate disk height loss is accompanied by anterior endplate spurring. A broad-based disk bulge, mild ligament flavum hypertrophy, and mild facet hypertrophy cause mild spinal canal, moderate right foraminal, and mild left foraminal narrowing. Unchanged. L3-L4: Severe disk height loss is accompanied by anterior endplate spurring. A posterior disk/osteophyte complex causes mild spinal canal, moderate right foraminal, and minimal left foraminal narrowing. L4-L5: A posterior disk/osteophyte complex is present. Moderate right facet osteoarthritis is seen. The patient has had a left-sided laminotomy with removal of ligamentum flavum. The residual degenerative changes cause mild spinal canal, minimal right foraminal, and moderate left foraminal narrowing. Unchanged. L5-L6: Severe disk height loss is accompanied by anterior endplate spurring. A posterior disk/osteophyte complex and moderate bilateral facet hypertrophy cause minimal spinal canal and mild to moderate bilateral foraminal narrowing as before. A left-sided laminotomy has been performed. L6-S1: A mild broad-based posterior disk protrusion and mild facet hypertrophy cause minimal spinal canal and moderate to severe bilateral foraminal narrowing. Spinal Canal: No enhancing masses within the spinal canal. No epidural abscess. Musculature: Mild posterior paraspinal muscle fatty atrophy is present. There is some edema in the musculature of the low back posteriorly, potentially postoperative. Other: Again demonstrated is a simple cyst in the left kidney that measures 3 cm. IMPRESSION: 1. S-shaped thoracolumbar scoliosis. 2. 1.6 cm T2 hyperintense, T1 hypointense, enhancing lesion within the L3 vertebral body. This has mildly increased in size, raising concerns that it indicates metastatic disease. 3. 6 lumbar vertebral bodies. 4. Mild spinal canal narrowing at T11-T12 due to disk protrusion as before. 5. Mild spinal canal narrowing at L1-L2 due to disk bulge as before. 6. Mild spinal canal, moderate right foraminal, and mild left foraminal narrowing at L2-L3 due to disk and posterior element degenerative changes as before. 6. Mild spinal canal, moderate right foraminal narrowing at L3-L4 due to disk/osteophyte complex as before. 7. Mild spinal canal and moderate left foraminal narrowing at L4-L5 due to disk and posterior element degenerative changes as before. 8. Mild to moderate bilateral foraminal narrowing at L5-L6 due to disk and posterior element degenerative changes as before. 9. Moderate to severe bilateral foraminal narrowing at L6-S1 due to disk and posterior element degenerative changes as before. Comment: The following findings are so common in adults without low back pain that while we report their presence, they must be interpreted with caution and in the context of the clinical situation. (Reference Elizabeth et al, Spine 2001) Prevalence of findings in patients without low back pain: Disk degeneration (any evidence): 92% Disk desiccation/T2 signal loss: 83% Disk height loss: 56% Disk bulge: 64% Disk protrusion: 32% Annular tear/high intensity zone: 38% RADIA
== END 2018-05-15 07:51 | disposition home or self-care (01) ==
LOC: DI 07:50
PROVIDERS: ATTEND Family Medicine
DX: M51.26 Other intervertebral disc displacement, lumbar region (principal); M48.061 Spinal stenosis, lumbar region without neurogenic claudication; M25.78 Osteophyte, vertebrae; M41.85 Other forms of scoliosis, thoracolumbar region; M89.9 Disorder of bone, unspecified
CPT/HCPCS: 72158; A9585

== ENCOUNTER 2018-07-28 08:40 | Outpatient (CLI) | payer MEDICARE ==
--- NOTE | 2018-07-28 09:03 | XRAY Report ---
Reason: FOOT PAIN,RIGHT Procedure Date: 07/28/2018 Accession Number: [id number] / [id number] Procedure: WCP - Foot 3 View RT CPT Code: FULL RESULT: EXAM: RIGHT FOOT RADIOGRAPHY EXAM DATE: 07/28/2018 08:49 AM. CLINICAL HISTORY: Foot pain,right. COMPARISON: None. TECHNIQUE: 3 views. FINDINGS: Bones: No acute fracture. There is a cortical screw and a cerclage wire from prior surgery involving the diaphysis of the first metacarpal. Joints: Degenerative narrowing, subchondral sclerosis and mild osteophytosis noted of the second through fourth tarsometatarsal joints. No subluxations. Soft Tissues: Normal. No soft tissue swelling. IMPRESSION: 1. No acute fracture. 2. Asymmetric degenerative changes noted of the second through fourth tarsometatarsal joints. RADIA
== END 2018-07-28 08:41 | disposition home or self-care (01) ==
LOC: DI.WCP 08:40
PROVIDERS: ATTEND Family Medicine
DX: M19.071 Primary osteoarthritis, right ankle and foot (principal)

== ENCOUNTER 2019-01-06 08:18 | Outpatient (CLI) | payer MEDICARE ==
[2019-01-06] MEDS ORDERED: GADOBUTROL 10 MMOL/10 ML VIAL ONE (08:46)
[2019-01-06] MEDS ORDERED: GADOBUTROL 10 MMOL/10 ML VIAL IVP ONE (09:15)
--- NOTE | 2019-01-06 15:44 | MRI Report ---
Reason: PLASMCYTOMA Procedure Date: 01/06/2019 Accession Number: [id number] / [id number] Procedure: MRI - Lumbar Spine W/WO CPT Code: FULL RESULT: EXAM: MRI LUMBAR SPINE WITHOUT AND WITH CONTRAST EXAM DATE: 01/06/2019 09:33 AM. CLINICAL HISTORY: Plasmacytoma. COMPARISONS: LUMBAR SPINE W/WO 05/15/2018 8:12 AM. TECHNIQUE: Multiplanar, multisequence T1-weighted and fluid-sensitive sequences of the lumbar spine from T12 to S1 before and after administration of intravenous contrast. Other: None. IV contrast: 8 mL of Gadavist. FINDINGS: Neurologic Structures: The conus terminates at L1-L2. The conus medullaris and cauda equina are unremarkable. Alignment: There is a 34 degree levoscoliosis centered on L2. There are 2 mm retrolisthesis at L1-L2 and L2-L3. Bone Marrow: Five ybi-[id number]-[id number] lumbar vertebral bodies are assumed. There is a low T1, intermediate T2, brightly enhancing mass in the L2 vertebral body consistent with the known diagnosis of multiple myeloma. The lesion has not altered significantly since the prior study. There are no new lesions. There is Modic type I change at L1-L2, L2-L3 and L4-L5. There is mild Modic type I and II change at L5-S1. Disk Levels/Facets: T12-L1: There is a broad-based posterior disk osteophyte complex with mild facet joint osteoarthritis causing mild canal narrowing. There is moderate right and mild left foraminal narrowing. L1-L2: There is disk desiccation and loss of disk height. There is a broad-based posterior disk osteophyte complex. There is moderate bilateral facet joint osteoarthritis causing mild canal narrowing. There is moderate right and mild left foraminal narrowing. Osteophytes contact the right L1 nerve root in the neural foramen. L2-L3: There is disk desiccation and loss of disk height. There are circumferential osteophytes with mild facet joint osteoarthritis. The findings cause mild canal narrowing. There is moderate right and mild left foraminal narrowing. Osteophytes appear to contact the right L2 nerve root lateral to the neural foramen. L3-L4: There are posteriorly projecting osteophytes. There is moderate right facet joint osteoarthritis. There has been a prior left hemilaminotomy and partial facetectomy. The canal is patent. There is moderate right and left foraminal narrowing. There is moderate right foraminal narrowing. Endplate osteophytes contact the L3 nerve root lateral to the neural foramen. There is mild left foraminal narrowing. L4-L5: There is severe disk desiccation and loss of disk height. There are circumferential osteophytes. There has been a prior left hemilaminectomy. There is mild facet joint osteoarthritis. There is moderate right and severe left foraminal narrowing. Osteophytes contact the left L4 nerve root in the neural foramen. L5-S1: There is disk desiccation and loss of disk height. There are circumferential osteophytes. There is mild facet joint osteoarthritis. The findings cause mild canal narrowing. There is moderate bilateral foraminal narrowing. Osteophytes contact both L5 nerve roots in the neural foramina. Spinal Canal: No enhancing masses within the spinal canal. No epidural abscess. Musculature: There are multiple bilateral renal cysts. The retroperitoneal soft tissues appear otherwise unremarkable. Other: The visualized retroperitoneum is unremarkable. IMPRESSION: 1. Severe degenerative change of the lumbar spine not significantly altered since the prior study. 2. Lesion consistent with multiple myeloma in the L2 vertebral body, not significantly altered since the prior study. No new lesions. 3. There is a small anterolisthesis at L3-L4, and grade 1 retrolisthesis at L2-L3. 4. T12-L1: There is mild canal narrowing. There is moderate right and mild left foraminal narrowing. 5. L1-L2: There is mild canal narrowing. There is moderate right and mild left foraminal narrowing. Osteophytes contact the right L1 nerve root in the neural foramen. 6. L2-L3: There is mild canal narrowing. There is moderate right and mild left foraminal narrowing. Osteophytes appear to contact the right L2 nerve root lateral to the neural foramen. 7. L3-L4: There has been a prior left hemilaminotomy and partial facetectomy. The canal is patent. There is moderate right and left foraminal narrowing. Endplate osteophytes contact the right L3 nerve root lateral to the neural foramen. There is mild left foraminal narrowing. 8. L4-L5: There is a prior left hemilaminectomy. The canal is patent. There is moderate right and severe left foraminal narrowing. Osteophytes contact the left L4 nerve root in the neural foramen.. 9. L5-S1: There is mild canal narrowing. There is moderate bilateral foraminal narrowing. Osteophytes contact both L5 nerve roots in the neural foramina. Comment: The following findings are so common in adults without low back pain that while we report their presence, they must be interpreted with caution and in the context of the clinical situation. (Reference Elizabeth et al, Spine 2001) Prevalence of findings in patients without low back pain: Disk degeneration (any evidence): 92% Disk desiccation/T2 signal loss: 83% Disk height loss: 56% Disk bulge: 64% Disk protrusion: 32% Annular tear/high intensity zone: 38% RADIA
== END 2019-01-06 08:19 | disposition home or self-care (01) ==
LOC: DI 08:18
PROVIDERS: ATTEND Internal Medicine Hematology & Oncology
DX: C90.30 Solitary plasmacytoma not having achieved remission (principal); M51.36 Other intervertebral disc degeneration, lumbar region; M48.061 Spinal stenosis, lumbar region without neurogenic claudication; M47.816 Spondylosis without myelopathy or radiculopathy, lumbar region; M51.37 Other intervertebral disc degeneration, lumbosacral region; M48.07 Spinal stenosis, lumbosacral region; M43.16 Spondylolisthesis, lumbar region
CPT/HCPCS: 72158; A9585

== ENCOUNTER 2019-06-03 12:15 | Outpatient (CLI) | payer MEDICARE ==
--- NOTE | 2019-06-07 15:33 | Mammography Report ---
Reason: ROUTINE MAMMO Procedure Date: 06/03/2019 Accession Number: [id number] / [id number] Procedure: MGN - Screening Mammo w/Hernandez CPT Code: Final Report FULL RESULT: EXAM: Screening Mammo w/Hernandez DATE: 06/03/2019 12:52 PM CLINICAL HISTORY: Routine screening, history of benign left breast biopsy. TECHNIQUE: (B) - Bilateral CC and MLO views were obtained. COMPARISON: 03/31/2018, 01/06/2017, 12/05/2015, 04/21/2014 and 03/01/2013 PARENCHYMAL PATTERN: (A) - The breasts demonstrate scattered fibroglandular densities bilaterally. FINDINGS: No significant interval change. There are no suspicious masses, calcifications, or areas of distortion. IMPRESSION: Negative examination. BI-RADS category 1. RECOMMENDATION: (ANNUAL) - Recommend routine annual screening mammography. BI-RADS CATEGORY: (1) - Negative. STANDARD QUALIFYING STATEMENTS: 1. This examination was not reviewed with the aid of Computer-Aided Detection (CAD). 2. A negative or benign imaging report should not preclude biopsy if clinically suspicious findings are present. 3. Dense breasts may obscure an underlying neoplasm. 4. This examination was reviewed with the aid of 3D breast imaging (tomosynthesis).
== END 2019-06-03 12:16 | disposition home or self-care (01) ==
LOC: DI.N 12:15
DX: Z12.31 Encounter for screening mammogram for malignant neoplasm of breast (principal)
CPT/HCPCS: 77063; 77067

== ENCOUNTER 2019-07-05 09:06 | Outpatient (CLI) | payer MEDICARE ==
[2019-07-05 12:55] LABS: CHOL/HDL RATIO 2.8 (<4.4); CHOLESTEROL 143 mg/dL; HDL CHOLESTEROL 52 mg/dL; LDL CHOLESTEROL,CALCULATED 79 mg/dL; LDL/HDL RATIO 1.5 (<4.4); VLDL CHOLESTEROL 12 mg/dL
== END 2019-07-05 23:59 | disposition home or self-care (01) ==
LOC: LAB.WCP 09:06
PROVIDERS: ATTEND Family Medicine
DX: E78.5 Hyperlipidemia, unspecified (principal); E04.1 Nontoxic single thyroid nodule
CPT/HCPCS: 36415; 80061; 83721; 84443

== ENCOUNTER 2019-07-28 10:20 | Outpatient (CLI) | payer MEDICARE ==
[2019-07-28] MEDS ORDERED: GADOBUTROL 10 MMOL/10 ML VIAL ONE (10:35)
[2019-07-28] MEDS ORDERED: GADOBUTROL 10 MMOL/10 ML VIAL IVP ONE (11:32)
--- NOTE | 2019-07-28 19:32 | MRI Report ---
Reason: PAIN IN LOWER BACK Procedure Date: 07/28/2019 Accession Number: [id number] / [id number] Procedure: MRI - Lumbar Spine W/WO CPT Code: Final Report FULL RESULT: EXAM: MRI LUMBAR SPINE WITHOUT AND WITH CONTRAST EXAM DATE: 07/28/2019 11:49 AM. CLINICAL HISTORY: Pain in lower back. Plasmacytoma. COMPARISONS: LUMBAR SPINE W/WO 01/06/2019 8:03 AM. TECHNIQUE: Multiplanar, multisequence T1-weighted and fluid-sensitive sequences of the lumbar spine from T12 to S1 before and after administration of intravenous contrast. Other: None. IV contrast: 8 cc GADAVIST. FINDINGS: Neurologic Structures: The conus terminates at L1. The conus medullaris and cauda equina are unremarkable. Alignment: 1. Levoscoliosis lumbar spine 28 degrees centered at L2. 2. Left lateral subluxation 1.3 cm L3 on L4. 3. Right lateral subluxation 7 mm L1 on L2. 4. Right lateral subluxation 6 mm T12 on L1. 5. Anterolisthesis 5 mm L3 on L4. Bone Marrow: Five lby-gfr-domlgbk lumbar vertebral bodies are assumed. Enlarging enhancing L2 vertebral body 2.6 x 2.0 x 3.5 cm plasmacytoma or myeloma increased in size as compared to 1.9 x 2.0 x 2.0 cm dimensions on the contrast MRI lumbar spine 01/06/2019. No new lesions are identified. Negative for L2 pathologic fracture. Disk Levels/Facets: T12-L1: Severe disk degeneration. Negative for foraminal stenosis. L1-L2: Severe disk degeneration. Mild right foraminal stenosis from facet degenerative hypertrophy. Moderate facet joint arthrosis. Negative for spinal canal stenosis. L2-L3: Severe disk degeneration. The left neural foramen is negative for stenosis. Moderate right foraminal stenosis from spondylosis. Moderate right facet joint arthrosis. L3-L4: Mild left foraminal stenosis. Moderate to severe right foraminal stenosis from disk degeneration and endplate spurring. Left laminectomy. Moderate right facet joint arthrosis. Negative for central spinal canal stenosis. Severe disk degeneration. L4-L5: Severe disk degeneration. Left laminectomy. Mild bilateral foraminal stenosis from spondylosis. Moderate facet joint arthrosis. L5-S1: Mild bilateral facet joint arthrosis. Severe left and moderate to severe right foraminal stenosis L5-S1 from disk degeneration and endplate spurring. Severe disk degeneration. Spinal Canal: No enhancing masses within the spinal canal. No epidural abscess. Musculature: Low lumbar and sacrum posterior paraspinal muscle atrophy. Other: The visualized retroperitoneum is unremarkable. Moderate extrahepatic biliary dilatation with 1.3 cm common bile duct caliber. Posterior left kidney 3.3 cm cyst. Partial visualization lateral right kidney fluid density mass. IMPRESSION: Enlarging L2 vertebral body 3.5 x 2.0 x 2.6 cm plasmacytoma or myeloma increased in size from 1.9 x 2.0 x 2.0 cm on the contrast MRI lumbar spine 01/06/2019. Comment: The following findings are so common in adults without low back pain that while we report their presence, they must be interpreted with caution and in the context of the clinical situation. (Reference Tyeshavik et al, Spine 2001) Prevalence of findings in patients without low back pain: Disk degeneration (any evidence): 92% Disk desiccation/T2 signal loss: 83% Disk height loss: 56% Disk bulge: 64% Disk protrusion: 32% Annular tear/high intensity zone: 38% RADIA
== END 2019-07-28 10:21 | disposition home or self-care (01) ==
LOC: DI 10:20
PROVIDERS: ATTEND Internal Medicine Hematology & Oncology
DX: C90.30 Solitary plasmacytoma not having achieved remission (principal); M43.15 Spondylolisthesis, thoracolumbar region; M51.35 Other intervertebral disc degeneration, thoracolumbar region; M43.16 Spondylolisthesis, lumbar region; M51.36 Other intervertebral disc degeneration, lumbar region; M48.061 Spinal stenosis, lumbar region without neurogenic claudication; M47.816 Spondylosis without myelopathy or radiculopathy, lumbar region; M47.817 Spondylosis without myelopathy or radiculopathy, lumbosacral region; M51.37 Other intervertebral disc degeneration, lumbosacral region; M48.07 Spinal stenosis, lumbosacral region; G12.9 Spinal muscular atrophy, unspecified
CPT/HCPCS: 72158; A9585

== ENCOUNTER 2019-09-22 11:10 | Outpatient (CLI) | payer MEDICARE ==
[2019-09-22 18:16] LABS: BASOPHILS % (AUTO) 0.7 %; EOSINOPHILS # (AUTO) 0.2 10^3/uL (0.0-0.7); EOSINOPHILS % (AUTO) 4.5 %; HGB - HEMOGLOBIN 8.9 g/dL (12.0-16.0); LYMPHOCYTES # (AUTO) 1.2 10^3/uL (1.5-3.5); LYMPHOCYTES % (AUTO) 28.2 %; MEAN CORPUSCULAR HEMOGLOBIN 27.4 pg (27.0-31.0); MEAN CORPUSCULAR VOLUME 94.5 fL (81.0-99.0); MEAN PLATELET VOLUME 10.6 fL (7.9-10.8); MONOCYTES # (AUTO) 0.3 10^3/uL (0.0-1.0); MONOCYTES % (AUTO) 7.5 %; NEUTROPHILS # (AUTO) 2.5 10^3/uL (1.5-6.6); NEUTROPHILS % (AUTO) 58.9 %; PLT - PLATELET COUNT 312 10^3/uL (130-450); RED BLOOD COUNT 3.25 10^6/uL (4.20-5.40); RED CELL DISTRIBUTION WIDTH 14.9 % (12.0-15.0); WHITE BLOOD COUNT 4.3 x10^3/uL (4.8-10.8)
[2019-09-22 18:54] LABS: ALBUMIN/GLOBULIN RATIO 2.1 (1.0-2.2); BILIRUBIN,TOTAL 0.3 mg/dL (0.2-1.0); CALCIUM 8.8 mg/dL (8.5-10.3); CREATININE 0.7 mg/dL (0.4-1.0); TOTAL PROTEIN 5.9 g/dL (6.7-8.2)
== END 2019-09-22 23:59 | disposition home or self-care (01) ==
LOC: LAB.WCP 11:10
PROVIDERS: ATTEND Family Medicine
DX: R60.9 Edema, unspecified (principal); I10 Essential (primary) hypertension
CPT/HCPCS: 36415; 80053; 83880; 85025

== ENCOUNTER 2019-09-28 09:18 | Outpatient (CLI) | payer MEDICARE ==
[2019-09-28 12:41] LABS: ABSOLUTE RETICS # AUTO 0.033 10^6/uL (0.020-0.110); BASOPHILS % (AUTO) 0.9 %; EOSINOPHILS # (AUTO) 0.2 10^3/uL (0.0-0.7); EOSINOPHILS % (AUTO) 5.7 %; LYMPHOCYTES # (AUTO) 1.4 10^3/uL (1.5-3.5); LYMPHOCYTES % (AUTO) 32.2 %; MEAN CORPUSCULAR HEMOGLOBIN 28.2 pg (27.0-31.0); MEAN CORPUSCULAR HGB CONC 30.8 g/dL (32.0-36.0); MEAN CORPUSCULAR VOLUME 91.5 fL (81.0-99.0); MEAN PLATELET VOLUME 10.6 fL (7.9-10.8); MONOCYTES # (AUTO) 0.4 10^3/uL (0.0-1.0); MONOCYTES % (AUTO) 8.3 %; NEUTROPHILS # (AUTO) 2.2 10^3/uL (1.5-6.6); NEUTROPHILS % (AUTO) 52.7 %; PLT - PLATELET COUNT 292 10^3/uL (130-450); RED BLOOD COUNT 3.55 10^6/uL (4.20-5.40); RED CELL DISTRIBUTION WIDTH 14.8 % (12.0-15.0); WHITE BLOOD COUNT 4.2 x10^3/uL (4.8-10.8)
[2019-09-28 13:21] LABS: FERRITIN 13.3 ng/mL (11.0-306.8)
[2019-09-28 13:24] LABS: FOLATE 12.58 ng/mL (5.90 - >24.8)
[2019-09-28 13:25] LABS: % IRON SATURATION 8 % (20-50); IRON 31 ug/dL (28-170); TOTAL IRON BINDING CAPACITY 406 ug/dL (250-450); TRANSFERRIN 290 mg/dL (192-382)
[2019-09-28 13:28] LABS: PLATELET ESTIMATE, MANUAL NORMAL (130-450,000) (NORMAL); PLATELET MORPHOLOGY NORMAL APPEARANCE (NORMAL); RBC MORPHOLOGY (MULTIPLE) NORMAL APPEARANCE (NORMAL)
== END 2019-09-28 23:59 | disposition home or self-care (01) ==
LOC: LAB.WCP 09:18
PROVIDERS: ATTEND Family Medicine
DX: D64.9 Anemia, unspecified (principal); R60.9 Edema, unspecified; I10 Essential (primary) hypertension
CPT/HCPCS: 36415; 82607; 82728; 82746; 83540; 84466; 85025; 85045

== ENCOUNTER 2019-10-04 07:00 | Outpatient (CLI) | payer MEDICARE | END 2019-10-04 23:59 | disposition home or self-care (01) | LOC: LAB.R 07:00 | PROVIDERS: ATTEND Family Medicine | DX: D64.9 Anemia, unspecified (principal) | CPT/HCPCS: 82274 ==

== ENCOUNTER 2019-11-22 06:48 | Outpatient (CLI) | payer MEDICARE ==
--- NOTE | 2019-11-22 07:42 | Ultrasound Report ---
PROCEDURE: Duplex Ext Veins Left INDICATIONS: EDEMA TECHNIQUE: Real-time imaging, as well as color and pulse Doppler interrogation, were performed of the left lower extremity deep veins from the inguinal ligament to the popliteal fossa. COMPARISON: None. FINDINGS: The deep veins are normally compressible, and free of intraluminal thrombus. Color and pu lse Doppler demonstrate normal phasic intraluminal flow. There is normal augmentation response to di stal compression maneuver. IMPRESSION: No evidence of deep vein thrombosis involving the left lower extremity. Reviewed by: Jackelyn Dwyer MD, PhD on 11/22/2019 7:41 AM PDT Approved by: Jackelyn Dwyer MD, PhD on 11/22/2019 7:41 AM PDT Station ID: [id number]
== END 2019-11-22 06:49 | disposition home or self-care (01) ==
LOC: DI 06:48
PROVIDERS: ATTEND Family Medicine
DX: R60.9 Edema, unspecified (principal); M79.605 Pain in left leg

== ENCOUNTER 2019-12-15 08:00 | Outpatient (CLI) | payer MEDICARE ==
[2019-12-15 12:29] LABS: CALCIUM 9.4 mg/dL (8.5-10.3)
== END 2019-12-15 23:59 | disposition home or self-care (01) ==
LOC: LAB.WCP 08:00
PROVIDERS: ATTEND Family Medicine
DX: R60.9 Edema, unspecified (principal)
CPT/HCPCS: 36415; 80048

== ENCOUNTER 2020-04-23 15:42 | Outpatient (CLI) | payer MEDICARE ==
[2020-04-23] MEDS ORDERED: GADOBUTROL 10 MMOL/10 ML VIAL ONE (16:42)
[2020-04-23] MEDS ORDERED: GADOBUTROL 10 MMOL/10 ML VIAL IVP ONE (18:02)
--- NOTE | 2020-04-24 08:49 | MRI Report ---
PROCEDURE: Lumbar Spine W/WO INDICATIONS: LOW BACK PAIN CONTRAST: IV CONTRAST: Gadavist ml: 8 TECHNIQUE: Noncontrast sagittal T1 spin echo and T2 fast spin echo, coronal T2, sagittal STIR, axial T1 and T2 f ast spin echo through the lumbar spine. In cases with scoliosis, additional coronal T2 fast spin ech o may be performed. COMPARISON: 07/27/2018 and 02/16/[address] lumbar [address] examinations. CT examination dated 02/23/2018 FINDINGS: Image quality: Excellent. Alignment and curvature: No plain films are available for comparison. Thus, for numbering purposes, 5 lumbar type vertebral bodies will be presumed for the current report. This should be confirmed with plain film correlation prior to any lumbar spinal intervention. There is severe leftward curvature o f the mid lumbar spine. Loss of normal lumbar lordosis. Mild grade 1 retrolisthesis of T12 on L1, L1 on L2, L2 on L3, and L4 on L5. Mild grade 1 anterolisthesis of L3 on L4. Marrow: Marrow is of normal overall signal. As before, there is an avidly enhancing, 28 mm diameter low T1, and high T2/STIR signal intensity focus within the L2 vertebral body, which has increased sl ightly in size compared to 07/28/2019, and is significantly increased compared to 02/16/2018 there is m ild reactive signal within the endplates adjacent to the T9-T10, T10-T11, L3-L4, L4-L5, and L5-S1 int ervertebral discs. Moderate reactive signal within the end plates adjacent to the L2-L3 intervertebra l disc.. No acute vertebral body compression fractures. Left L3-L4 and L4-L5 hemilaminotomy. Spinal cord: Conus medullaris terminates at the mid L1 level. Visualized spinal cord demonstrates n ormal signal, without suspicious enhancement. Paraspinous soft tissues: No paravertebral masses or abnormal enhancement. No significant change in extrahepatic biliary ductal dilatation. T12-L1: Moderate disc height loss and desiccation. Mild diffuse disc bulge. Mild facet and ligament flavum hypertrophy. Mild canal stenosis. Moderate right and mild left foraminal stenosis. No change. L1-L2: Moderate disc height loss and desiccation. Mild diffuse disc bulge. Mild facet and ligament flavum hypertrophy. Mild epidural lipomatosis. Mild canal stenosis. Mild left and moderate right for aminal stenosis. No change. L2-L3: Severe disc height loss and desiccation. Mild diffuse disc bulge/osteophyte with small supe rimposed broad-based right posterolateral and far lateral protrusion/osteophyte. Mild facet and ligam ent flavum hypertrophy. Mild epidural lipomatosis. Mild canal stenosis. Moderate right and mild left foraminal stenosis. No change. L3-L4: Moderate disc height loss and desiccation. Mild diffuse disc bulge. Mild facet hypertrophy b ilaterally. Mild canal stenosis. Moderate left and mild right foraminal stenosis. No change. L4-L5: Severe disc height loss and desiccation. Mild diffuse disc bulge. Mild bilateral facet hyper trophy. No significant canal stenosis. Mild to moderate bilateral foraminal stenosis. No change. L5-S1: Moderate disc height loss and desiccation. Mild diffuse disc bulge. Mild facet and ligament flavum hypertrophy. Mild canal stenosis. Severe bilateral foraminal stenosis with bilateral L5 nerve root compression. No change. IMPRESSION: 1. Multilevel degenerative disc and facet disease, in addition to epidural lipomatosis and ligamentum flavum hypertrophy. 2. Increasing L2 marrow space lesion, possibly indicating metastasis or plasmacytoma. 3. Mild multilevel canal stenoses. 4. Multilevel foraminal stenoses, worst at L5-S1 bilaterally, where there is associated intraforamina l nerve root compression. Recommend correlation with clinical symptoms to ascertain relevance of thes e findings. 5. Postsurgical sequelae. 6. No change in biliary ductal dilatation. Reviewed by: Yamil Bello MD on 04/24/2020 8:48 AM PST Approved by: Yamil Bello MD on 04/24/2020 8:48 AM PST Station ID: [id number]
--- NOTE | 2020-04-24 09:49 | MRI Report ---
PROCEDURE: Pelvis W/WO INDICATIONS: LOW BACK PAIN CONTRAST: IV CONTRAST: Gadavist ml: 8 TECHNIQUE: Noncontrast coronal T1 spin echo and STIR, sagittal T1 spin echo with fat saturation and STIR, axial T1 spin echo and T2 fast spin echo with fat saturation. After the administration of contrast, axial/ sagittal/coronal T1 spin echo with fat saturation through the pelvis. COMPARISON: Nuclear medicine bone scan dated 04/06/[address] of abdomen and pelvis dated 02/23/2018 .. FINDINGS: Image quality: Diagnostic. Motion artifacts are noted.. Bones: Degenerative disc disease throughout visualized lower lumbar spine is seen please correlate w ith MR of lumbar spine findings performed on the same day. Osteoarthritic changes are noted in bilate ral hip joints slightly worse on the right side. No marrow edema. No fracture or dislocation. No evid ence of avascular necrosis of femoral head. Bilateral sacroiliac joint osteoarthritic changes also se en with joint space narrowing and subchondral sclerosis. No bony erosion or ankylosis is seen. No sig nificant joint fluid. No area of abnormal intraosseous enhancement. Soft tissues: There is moderate grade tendinosis and partial thickness tear involving distal left gl uteus medius and minimus tendons at their insertion on greater trochanter. Fluid distention of adjace nt trochanteric bursa is seen with heterogeneous contrast enhancement suggestive of trochanteric burs itis. Mild tendinosis and low-grade partial-thickness tear involving right distal gluteus medius and minimus tendons at their insertion on right greater trochanter is seen without fluid distention of tr ochanteric bursa or abnormal enhancement. No other muscle or tendon signal abnormality is seen within pelvis and bilateral hip. Bladder wall thickness is normal. No evidence of bowel obstruction or peritoneal free fluid. Extensiv e colonic diverticulosis is seen, no CT evidence of acute diverticulitis. Uterus is within normal banuelos its. Septated left ovarian cyst is seen measures 3.7 x 2.6 cm in size and show no abnormal contrast e nhancement. IMPRESSION: 1. Right worse than left bilateral hip joint osteoarthritis. No hip fracture or dislocation. No evide nce of avascular necrosis of femoral head. 2. Bilateral sacroiliac joint osteoarthritis without bony erosion or ankylosis. 3. No area of abnormal intraosseous enhancement. 4. Left worse than right bilateral distal gluteus medius and minimus tendinosis and partial thickness tear. Fluid distention of adjacent left trochanteric bursa concerning for left trochanteric bursitis . 5. No pelvic free fluid. No abnormal bladder wall thickening. No bowel obstruction. Colonic diverticu losis without evidence of acute diverticulitis. Normal-appearing uterus and right ovary. Suggestion o f a 3.7 x 2.6 cm septated cyst in left ovary. No area of abnormal soft tissue enhancement. Reviewed by: Ferny Bird MD on 04/24/2020 9:48 AM PST Approved by: Freny Bird MD on 04/24/2020 9:48 AM PST Station ID: [id number]
== END 2020-04-23 15:43 | disposition home or self-care (01) ==
LOC: DI 15:42
PROVIDERS: ATTEND Internal Medicine Hematology & Oncology
DX: M51.37 Other intervertebral disc degeneration, lumbosacral region (principal); M48.07 Spinal stenosis, lumbosacral region; M47.818 Spondylosis without myelopathy or radiculopathy, sacral and sacrococcygeal region; M16.0 Bilateral primary osteoarthritis of hip; K57.30 Diverticulosis of large intestine without perforation or abscess without bleeding
CPT/HCPCS: 72158; 72197; A9585

== ENCOUNTER 2020-06-13 02:53 | Outpatient (CLI) | payer MEDICARE ==
--- OUTSIDE RECORDS SUMMARY | 2020-06-20 00:17 | EXTERNAL MEDICAL SUMMARY RPT | Continuity of Care Document ---
:1935 Demographics Phone Unavailable Preferred Language Unknown Marital Status Unknown Alevism Affiliation Unknown Race Unknown Ethnic Group Unknown Author Organization [place] Address [address] [id number] Phone Social History date description facility [phone]
== END 2020-06-13 02:54 ==
LOC: EMS 02:53
DX: M54.9 Dorsalgia, unspecified (principal); R10.30 Lower abdominal pain, unspecified

== ENCOUNTER 2020-06-13 03:57 | Emergency (ER) | payer MEDICARE ==
[2020-06-13] MEDS ORDERED: SODIUM CHLORIDE 0.9% 1,000 ML IV STA ×2 (04:33→07:50)
[2020-06-13 05:17] LABS: BASOPHILS % (AUTO) 0.6 %; EOSINOPHILS # (AUTO) 0.2 10^3/uL (0.0-0.7); EOSINOPHILS % (AUTO) 2.6 %; HCT - HEMATOCRIT 40.5 % (37.0-47.0); HGB - HEMOGLOBIN 13.2 g/dL (12.0-16.0); LYMPHOCYTES # (AUTO) 1.4 10^3/uL (1.5-3.5); LYMPHOCYTES % (AUTO) 21.6 %; MEAN CORPUSCULAR HEMOGLOBIN 29.7 pg (27.0-31.0); MEAN CORPUSCULAR HGB CONC 32.6 g/dL (32.0-36.0); MEAN PLATELET VOLUME 9.8 fL (7.9-10.8); MONOCYTES # (AUTO) 0.6 10^3/uL (0.0-1.0); NEUTROPHILS # (AUTO) 4.3 10^3/uL (1.5-6.6); NEUTROPHILS % (AUTO) 65.6 %; PLT - PLATELET COUNT 289 10^3/uL (130-450); RED BLOOD COUNT 4.45 10^6/uL (4.20-5.40); RED CELL DISTRIBUTION WIDTH 15.1 % (12.0-15.0); WHITE BLOOD COUNT 6.6 x10^3/uL (4.8-10.8)
[2020-06-13 05:35] LABS: PT - PROTHROMBIN TIME 11.6 secs (9.9-12.6)
[2020-06-13 05:42] LABS: ALBUMIN 4.2 g/dL (3.2-5.5); ALBUMIN/GLOBULIN RATIO 1.6 (1.0-2.2); BILIRUBIN,TOTAL 0.7 mg/dL (0.2-1.0); CALCIUM 10.3 mg/dL (8.5-10.3); CREATININE 0.8 mg/dL (0.4-1.0); POTASSIUM 4.2 mmol/L (3.5-5.0); TOTAL PROTEIN 6.8 g/dL (6.7-8.2)
[2020-06-13] MEDS ORDERED: HYDROmorphone 1 MG/ML CARPUJECT IVP STA (05:47)
--- NOTE | 2020-06-13 05:50 | ED Physician Documentation ---
History of Present Illness - Stated complaint Stated Complaint: ABD PX, LIGHTHEADED - Chief complaint Chief Complaint: Abd Pain - History obtained from History obtained from: Patient - Additonal information Additional information: Patient comes emergency department chief complaint of low abdominal pain that started yesterday evening. Patient states she thought she was just constipated, but after 3 solid bowel movements, her pain has only gotten worse. Patient denies nausea or vomiting. No dysuria. No fevers or chills. No diarrhea. Patient states that she does have constipation occasionally, but that her bowel movements actually seem fairly normal today. Patient denies any other complaints at this time. Review of Systems Ten Systems: 10 systems reviewed and negative Constitutional: reports: Reviewed and negative Eyes: reports: Reviewed and negative Ears: reports: Reviewed and negative Nose: reports: Reviewed and negative Throat: reports: Reviewed and negative Cardiac: reports: Reviewed and negative Respiratory: reports: Reviewed and negative GI: reports: Abdominal Pain, Constipation : reports: Reviewed and negative Skin: reports: Reviewed and negative Musculoskeletal: reports: Reviewed and negative Neurologic: reports: Reviewed and negative Psychiatric: reports: Reviewed and negative Endocrine: reports: Reviewed and negative Immunocompromised: reports: Reviewed and negative PD PAST MEDICAL HISTORY - Past Medical History Cardiovascular: None Respiratory: None Neuro: TIA, Headaches Endocrine/Autoimmune: None GI: None : None Psych: Anxiety Musculoskeletal: None - Past Surgical History Ortho: Knee replacement - Present Medications Home Medications: Ambulatory Orders Medication Instructions Recorded Confirmed Aspirin [Adult Aspirin Regimen] 81 mg pe PO DAILY 10/12/18 05/02/20 Cholecalciferol (Vitamin D3) 2,000 unit PO DAILY 10/12/18 05/02/20 [Vitamin D3] Gabapentin 600 mg PO BID 10/12/18 05/02/20 Multivit with Minerals/Lutein 1 tab PO DAILY 10/12/18 05/02/20 [Theratrum Complete 50 Plus Tab] Simvastatin [Zocor] 40 mg PO QPM 10/12/18 05/02/20 lisinopriL [Lisinopril] 20 mg PO DAILY 10/12/18 05/02/20 dexAMETHasone [Decadron] 20 mg PO DAILY 04/30/20 05/02/20 - Allergies Allergies/Adverse Reactions: Allergies Allergy/AdvReac Type Severity Reaction Status Date / Time ticlopidine [From Ticlid] Allergy Anaphylaxis Verified 06/13/20 04:12 - Social History Smoking Status: Current every day smoker PD ED PE NORMAL - Vitals Vital signs reviewed: Yes - General General: Alert and oriented X 3, No acute distress, Well developed/nourished - HEENT HEENT: Atraumatic, PERRL, EOMI, Moist mucous membranes - Neck Neck: Supple, no meningeal sign - Cardiac Cardiac: RRR, No murmur, Strong equal pulses - Respiratory Respiratory: No respiratory distress, Clear bilaterally - Abdomen Abdomen: Soft, Non distended, Other (Moderate tenderness without rebound or guarding throughout low abdomen) - Back Back: No CVA TTP - Derm Derm: Normal color, Warm and dry, No rash - Extremities Extremities: No deformity, No edema - Neuro Neuro: Alert and oriented X 3, dry wall sprayer 2-12 intact, Normal speech, Other (grossly intact otherwise) - Psych Psych: Normal mood, Normal affect Results - Vitals Vitals: Vital Signs - 24 hr 06/13/20 04:09 Temperature 37.0 C Heart Rate 689 H Respiratory 17 Rate Blood Pressure 178/63 H O2 Saturation 93 Oxygen O2 Source Room air - Labs Labs: Laboratory Tests 06/13/20 06/13/20 06/13/20 05:05 05:26 05:26 WBC 6.6 RBC 4.45 Hgb 13.2 Hct 40.5 MCV 91.0 MCH 29.7 MCHC 32.6 RDW 15.1 H Plt Count 289 MPV 9.8 Neut # (Auto) 4.3 Lymph # (Auto) 1.4 L Arroyo # (Auto) 0.6 Eos # (Auto) 0.2 Baso # (Auto) 0.0 Absolute Nucleated RBC 0.00 Nucleated RBC % 0.0 PT 11.6 INR 1.0 Sodium 137 Potassium 4.2 Chloride 99 L Carbon Dioxide 24 Anion Gap 14.0 H BUN 20 Creatinine 0.8 Estimated GFR (MDRD) 69 L Glucose 107 H Calcium 10.3 Total Bilirubin 0.7 AST 24 ALT 19 Alkaline Phosphatase 100 Total Protein 6.8 Albumin 4.2 Globulin 2.6 Albumin/Globulin Ratio 1.6 Lipase 40 PD MEDICAL DECISION MAKING - ED course Complexity details: reviewed old records, reviewed results, re-evaluated sadie ent, considered differential, d/w patient ED course: The patient was worked up with laboratory studies which were unremarkable. She did not seem to be constipated now, given her output of 3 normal stools overnight. I was concerned about her pain and tenderness with consideration of her age, and I felt she should be worked up with a CT scan of the abdomen and pelvis. This is pending at this time. She is signed out to Dr. Sanchez, pending CT results and final disposition.
[2020-06-13] MEDS ORDERED: ONDANSETRON 4 MG/2 ML VIAL IVP STA (06:04)
[2020-06-13] MEDS ORDERED: IOVERSOL 320 100 ML VIAL IVP ONE (06:52)
[2020-06-13 07:27] LABS: BILIRUBIN,URINE NEGATIVE (NEGATIVE); GLUCOSE, URINE (UA) NEGATIVE (NEGATIVE); KETONES,URINE (UA) TRACE mg/dL (NEGATIVE); LEUKOCYTE ESTERASE, URINE NEGATIVE (NEGATIVE); NITRITE,URINE NEGATIVE (NEGATIVE); OCCULT BLOOD,URINE TRACE-INTA (NEGATIVE); PH,URINE 6.5 PH (5.0-7.5); PROTEIN,URINE NEGATIVE (NEGATIVE); UROBILINOGEN,URINE 0.2 (NORMAL) E.U./dL (NORMAL)
[2020-06-13 07:29] LABS: CLARITY,URINE CLEAR (CLEAR)
[2020-06-13] MEDS ORDERED: DEXAMETHASONE 10 MG/ML VIAL IVP STA (07:51)
--- NOTE | 2020-06-13 08:49 | ED Physician Documentation ---
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 On exam she does not appear particularly tender. She has localization of the pain to her lower abdomen. When I described to the patient the possibility of the pain coming from her back and radiating around to the front she was able to confirm that this does seem to be the pattern of her pain. She has had a problem with this L2 vertebral body has had radiation to it and she has had a recent MR of the lumbar spine. At that last visit to her oncologist she was given dexamethasone and she took this with successful improvement in her pain. She states the course was a short course and it had been prescribed at 20 mg/day she states that she took that once and then took less pills following that. She did not feel that she needed that high of a dose and what ever she took seem to work. Here in the emergency department today on evaluation I have found the patient to be dehydrated with her inferior vena cava measuring 0.94 cm consistent with a 1 to 2 L deficit and she is given a liter of saline as well as 10 mg of dexamethasone. We will place the patient on a short course of dexamethasone at 4 mg/day for 5 days and provide [place] as backup for pain relief. 06/13/20 08:53 CT abdomen pelvis with:Impression: 1. 3 cm left adnexal cyst. Postmenopausal uterine atrophy. 2. Diverticulosis coli without CT evidence of acute diverticulitis. Normal appendix and terminal ileum. Bowel demonstrates a nonobstructive pattern. No free air fluid or inflammatory process demonstrated. 3. Post cholecystectomy. Stable intra and extrahepatic ductal dilation. 4. Stable renal cysts bilaterally. 5. Evidence of old granulomatous disease. 6. Increased lucency of L2 vertebral body but does not have the appearance of an osteolytic lesion but is more conspicuous on current exam and previous than previously described on prior imaging. A follow-up MRI of the lumbar spine with and without gadolinium or bone scan can confirm a probable benign finding. Levoscoliosis. Degenerative spondylosis.
[2020-06-13] MEDS ORDERED: KETOROLAC 30 MG/ML VIAL IVP STA (08:52)
[2020-06-13 09:00] VITALS: BP 188/73
--- NOTE | 2020-06-13 09:09 | CT Report ---
PROCEDURE: Abdomen/Pelvis W INDICATIONS: Worsening lower abdominal pain CONTRAST: IV CONTRAST: Optiray 320 ml: 100 PO CONTRAST: *NO PO CONTRAST TECHNIQUE: After the administration of intravenous contrast, 5 mm thick sections acquired from the diaphragms to the symphysis. 5 mm thick coronal and sagittal reformats were acquired. For radiation dose reducti on, the following was used: automated exposure control, adjustment of mA and/or kV according to sadie ent size. COMPARISON: 02/23/2014 CT abdomen and pelvis; 04/23/2020 MRI lumbar spine FINDINGS: Image quality: Excellent. ABDOMEN: Lung bases: Mild bibasilar atelectasis. No focal consolidation in the lung bases. Calcified mediastin al and hilar lymph nodes partially visualized. No visible pleural effusion. No cardiomegaly. Coronary atherosclerosis. Visualized portions of the thoracic aorta and main pulmonary trunk are normal in ca liber. Solid organs: Status post cholecystectomy. Intrahepatic and extrahepatic biliary ductal dilatation is unchanged. No focal hepatic mass. Spleen is normal in size. Pancreas is unremarkable. No adrenal gla nd mass. Bilateral renal cysts. No hydronephrosis. Peritoneum and bowel: No abnormally dilated or obviously thickened loop of bowel. Colonic diverticulo sis without findings of diverticulitis. Appendix is normal. Nodes and vessels: Nonaneurysmal atherosclerotic abdominal aorta. IVC appears patent. Hepatic and por malou veins appear patent. PELVIS: Genitourinary: Bladder wall thickness is normal. Approximately 3 cm left adnexal cyst. Uterus is atr ophic. Right ovary grossly unremarkable. Bones: Lytic lesion in the L2 vertebral body is unchanged in size from 04/23/2020 MRI. This was T1 hypo intense and enhancing on that MRI examination, concerning for plasmacytoma or metastatic lesion. No a dditional lytic lesion in the visualized skeleton. IMPRESSION: No acute finding to explain abdominal pain. Diverticulosis without findings of diverticulitis. Stable intrahepatic and extra hepatic biliary ductal dilatation when compared with prior studies, lik lee a function of postcholecystectomy reservoir phenomenon. Unchanged size of L2 lytic lesion when compared with 04/23/2020 MRI, T1 hypointense and enhancing on th at exam (suggestive of either plasmacytoma or metastasis). Clinical correlation will be needed. Reviewed by: Hans Abel MD on 06/13/2020 9:07 AM PDT Approved by: Hans Abel MD on 06/13/2020 9:07 AM PDT Station ID: [id number]
--- OUTSIDE RECORDS SUMMARY | 2020-06-19 23:09 | EXTERNAL MEDICAL SUMMARY RPT | Continuity of Care Document ---
:1935 Demographics Phone Unavailable Preferred Language Unknown Marital Status Unknown Pentecostalism Affiliation Unknown Race Unknown Ethnic Group Unknown Author Organization [place] Address [address] [phone] Phone Social History date description facility [phone]
== END 2020-06-13 09:30 | disposition home or self-care (01) ==
LOC: ED 03:57
DX: R10.30 Lower abdominal pain, unspecified (principal); E86.0 Dehydration; M47.16 Other spondylosis with myelopathy, lumbar region; Z85.79 Personal history of other malignant neoplasms of lymphoid, hematopoietic and related tissues; K57.30 Diverticulosis of large intestine without perforation or abscess without bleeding; N28.1 Cyst of kidney, acquired; N85.8 Other specified noninflammatory disorders of uterus; Z90.49 Acquired absence of other specified parts of digestive tract; F17.200 Nicotine dependence, unspecified, uncomplicated; Z79.82 Long term (current) use of aspirin
CPT/HCPCS: 36415; 74177; 80053; 81003; 83690; 85025; 85610; 96361; 96374; 96375; 99284; 99285; J1170; Q9967; 81001; 87086

== ENCOUNTER 2021-02-22 12:03 | Outpatient (CLI) | payer MEDICARE ==
--- NOTE | 2021-02-22 13:40 | XRAY Report ---
PROCEDURE: Chest 2 View X-Ray INDICATIONS: CHEST DISCOMFORT TECHNIQUE: 2 view(s) of the chest. COMPARISON: Reference is made to the CT chest dated January 14, 2018. FINDINGS: SUPPORT DEVICES: None. LUNGS/PLEURA: Reduced lung volumes. No focal consolidation, pleural effusion or space-occupying pneum othorax. MEDIASTINUM: The cardiomediastinal silhouette is within normal limits. BONES/SOFT TISSUES: No acute abnormality. IMPRESSION: 1.No acute cardiopulmonary abnormality. Reviewed by: Manjinder Morales MD on 02/22/2021 1:39 PM [facility] Approved by: Manjinder Morales MD on 02/22/2021 1:39 PM [facility] Station ID: [id number]
== END 2021-02-22 23:59 | disposition home or self-care (01) ==
LOC: DI.N 12:03
PROVIDERS: ATTEND Family Medicine
DX: R07.89 Other chest pain (principal)

== ENCOUNTER 2021-07-01 10:11 | Outpatient (CLI) | payer MEDICARE ==
--- NOTE | 2021-07-01 12:14 | XRAY Report ---
PROCEDURE: Chest 2 View X-Ray INDICATIONS: SOB TECHNIQUE: 2 view(s) of the chest. COMPARISON: None. FINDINGS: Surgical changes and devices: Cholecystectomy clips.. Lungs and pleura: No pleural effusions or pneumothorax. Low lung volumes. Mild cephalization of pulm onary vascular and subtle bilateral perihilar opacities. Mild bilateral lung interstitial prominence is increased compared to prior exam. Mediastinum: Mediastinal contours are normal. Heart size is normal. Bones and chest wall: No suspicious bony abnormalities. Soft tissues appear unremarkable. IMPRESSION: CHF. Reviewed by: Jackelyn Dwyer MD, PhD on 07/01/2021 12:13 PM PDT Approved by: Jackelyn Dwyer MD, PhD on 07/01/2021 12:13 PM PDT Station ID: [id number]
== END 2021-07-01 23:59 | disposition home or self-care (01) ==
LOC: DI.N 10:11
PROVIDERS: ATTEND Nurse Practitioner
DX: I50.9 Heart failure, unspecified (principal); R06.02 Shortness of breath; Z20.822 Contact with and (suspected) exposure to COVID-19
CPT/HCPCS: 36415; 71046; 83880; 85379; U0004; 80053; 85025

== ENCOUNTER 2021-07-01 13:15 | Emergency (ER) | payer MEDICARE ==
[2021-07-01 13:26] VITALS: BP 145/49
[2021-07-01] MEDS ORDERED: SODIUM CHLORIDE 0.9% 1,000 ML IV STA (14:43)
[2021-07-01] MEDS ORDERED: IOVERSOL 320 100 ML VIAL IVP ONE ×2 (14:56→15:30)
--- NOTE | 2021-07-01 16:03 | ED Physician Documentation ---
PD HPI CHEST PAIN - Stated complaint Stated Complaint: SOA/COUGH - Chief complaint Chief Complaint: Resp - History obtained from History obtained from: Patient - Additional information Additional information: The patient comes to the emergency department for chief complaint of shortness of breath and weakness. She states that she has been feeling weaker than usual ever since completing her radiation for a malignant spinal lesion back in May. She states that Over the last few days, she is also felt short of breath. The patient has a follow-up appointment with her oncologist Dr. Argenis Crowley tomorrow to discuss how she has been feeling. She was seen today at the walk-in clinic for an initial evaluation of her shortness of breath and was told to come here for possible PE. The patient denies any new swelling in her lower extremities. She has some chronic, mild swelling in both lower extremities which has not changed recently. She denies pain in her legs. No history of DVT or PE. The patient has been fairly healthy prior to the cancer she states. The patient says that her cancer is primarily coming from the spine and That it is not thought to be metastatic from somewhere else. She is not on chemotherapy. She denies chest pain, though she has had a cough. No other complaints at this time. Review of Systems Ten Systems: 10 systems reviewed and negative Constitutional: reports: Reviewed and negative Eyes: reports: Reviewed and negative Ears: reports: Reviewed and negative Nose: reports: Reviewed and negative Throat: reports: Reviewed and negative Cardiac: reports: Reviewed and negative Respiratory: reports: Dyspnea, Cough GI: reports: Reviewed and negative : reports: Reviewed and negative Skin: reports: Reviewed and negative Musculoskeletal: reports: Reviewed and negative Neurologic: reports: Reviewed and negative Psychiatric: reports: Reviewed and negative Endocrine: reports: Reviewed and negative Immunocompromised: reports: Reviewed and negative PD PAST MEDICAL HISTORY - Past Medical History Cardiovascular: Hypertension Respiratory: None Neuro: TIA, Headaches Endocrine/Autoimmune: None GI: Diverticulitis BLOCKMASON: None : None Psych: Anxiety Musculoskeletal: Osteoarthritis, Scoliosis Derm: Herpes zoster - Past Surgical History Past Surgical History: Yes General: Cholecystectomy Ortho: Knee replacement, Spine surgery - Present Medications Home Medications: Ambulatory Orders Medication Instructions Recorded Confirmed Aspirin [Adult Aspirin Regimen] 81 mg pe PO DAILY 10/12/18 05/13/21 Gabapentin 600 mg PO BID 10/12/18 05/13/21 Multivit with Minerals/Lutein 1 tab PO DAILY 10/12/18 05/13/21 [Theratrum Complete 50 Plus Tab] Simvastatin [Zocor] 40 mg PO QPM 10/12/18 05/13/21 lisinopriL [Lisinopril] 20 mg PO DAILY 10/12/18 05/13/21 Lenalidomide [Revlimid] 25 mg PO DAILY 05/02/21 05/13/21 dexAMETHasone [Hemady] 20 mg PO OAW 05/02/21 05/13/21 Acyclovir 400 mg PO BID #180 tablet 05/14/21 - Allergies Allergies/Adverse Reactions: Allergies Allergy/AdvReac Type Severity Reaction Status Date / Time ticlopidine [From Ticlid] Allergy Anaphylaxis Verified 07/01/21 13:26 - Social History Does the pt smoke?: No Smoking Status: Never smoker Does the pt drink ETOH?: No Does the pt have substance abuse?: No - Immunizations Immunizations are current?: Yes PD ED PE NORMAL - Vitals Vital signs reviewed: Yes - General General: Alert and oriented X 3, No acute distress, Well developed/nourished - HEENT HEENT: Atraumatic, PERRL, EOMI, Moist mucous membranes - Neck Neck: Supple, no meningeal sign - Cardiac Cardiac: RRR, No murmur, Strong equal pulses - Respiratory Respiratory: No respiratory distress, Clear bilaterally - Derm Derm: Normal color, Warm and dry, No rash - Extremities Extremities: No deformity, No calf tenderness / cord, Other (Trace pitting edema bilateral lower extremities) - Neuro Neuro: Alert and oriented X 3, health care manager 2-12 intact, Normal speech - Psych Psych: Normal mood, Normal affect Results - Vitals Vitals: Vital Signs - 24 hr 07/01/21 07/01/21 13:22 15:39 Temperature 36.9 C Heart Rate 98 88 Respiratory 18 14 Rate Blood Pressure 145/49 H O2 Saturation 100 100 Oxygen O2 Source Room air - Labs Labs: Laboratory Tests 07/01/21 16:05 Nasal Adenovirus (PCR) NOT DETECTED Nasal B. parapertussis DNA (PCR) NOT DETECTED Nasal Coronavir 229E PCR NOT DETECTED Nasal Coronavir HKU1 PCR NOT DETECTED Nasal Coronavir NL63 PCR NOT DETECTED Nasal Coronavir OC43 PCR NOT DETECTED Nasal Enterovir/Rhinovir PCR NOT DETECTED Nasal Influenza B PCR NOT DETECTED Nasal Influenza A PCR NOT DETECTED Nasal Parainfluen 1 PCR NOT DETECTED Nasal Parainfluen 2 PCR NOT DETECTED Nasal Parainfluen 3 PCR NOT DETECTED Nasal Parainfluen 4 PCR NOT DETECTED Nasal RSV (PCR) NOT DETECTED Nasal B.pertussis DNA PCR NOT DETECTED Nasal C.pneumoniae (PCR) NOT DETECTED Kostas Human Metapneumo PCR NOT DETECTED Nasal M.pneumoniae (PCR) NOT DETECTED Nasal SARS-CoV-2 (PCR) NOT DETECTED - Rads (name of study) CT angiogram chest Radiology: Final report received, EMP read indepedently, See rad report (Negative for PE; pulmonary nodules nonacute; multiple spinal lesions and a paraspinal mass.) PD MEDICAL DECISION MAKING - ED course Complexity details: reviewed results, re-evaluated patient, considered differential, d/w patient ED course: The patient had already had laboratory studies done and these were reviewed. Her GFR was 33, and patient did acknowledge that she has had progressive kidney failure and is followed for this. She was given IV fluids to offset the effects of the IV contrast. CT angiogram of the chest was performed, and this was found to be negative. We have discussed the patient may have a viral illness or she may be experiencing delayed sequelae of her radiation treatment. I emphasized the importance of her following up with her oncologist tomorrow as planned. We have discussed the usual indications for return. Departure - Departure Disposition: 01 Home, Self Care Clinical Impression: Generalized weakness Dyspnea Qualifiers: Dyspnea type: shortness of breath Qualified Code(s): R06.02 - Shortness of breath Condition: Stable Instructions: ED Dyspnea Shortness of Breath Comments: Your CT scan did not show any acute problems in your lungs. You were found to have the known lesions in and around your spine for which you are already being followed by oncology. Please keep your appointment with Dr. Crowley for tomorrow to further discuss your symptoms. A viral panel is pending at this time and Dr. Crowley can review this with you tomorrow. Discharge Date/Time: 07/01/21 16:50
--- NOTE | 2021-07-01 16:06 | CT Report ---
PROCEDURE: ANGIO CHEST W/WO INDICATIONS: SOA, CP TECHNIQUE: After the administration of intravenous contrast, 2 mm axial images were acquired from the pulmonary apices to the posterior costophrenic angles during the arterial phase. In addition, 1 mm lung kernel and 5 mm soft tissue kernel reconstructions were performed. 3-dimensional coronal oblique maximum int ensity projection (MIP) reformats, 8 mm axial MIP, and 5 mm coronal and sagittal MPR reformats were t hen performed through the thorax. For radiation dose reduction, the following was used: automated exp osure control, adjustment of mA and/or kV according to patient size. COMPARISON: Chest radiograph dated 07/01/2021, 02/22/2022, and CT angiogram of chest dated 01/14/2018 FINDINGS: Image quality: Excellent. Pulmonary arteries: Pulmonary arteries are normal in size, and demonstrate no intraluminal filling d efects to suggest central pulmonary embolism. Lungs and pleura: Scattered atelectasis in periphery of bilateral lung najera are seen. There is sugg estion of very mild pulmonary edema with ill-defined patchy areas of groundglass opacities. A few karlo cified granuloma are seen scattered in left lower lobe and right upper lobe. No pleural effusions or pneumothorax. Central and peripheral airways are patent. Mediastinum: Heart size is enlarged, without pericardial effusion. No mediastinal or hilar adenopat hy by size criteria. Calcified lymph nodes are seen in right paratracheal space unchanged from prior study. Thoracic aorta is normal in caliber and enhancement. Esophagus is normal in caliber, without hiatal hernia. Bones and chest wall: Expansile mass involving left posterior medial sixth rib with extension to invo lve posterior lateral aspect of T6 vertebral body and adjacent left lateral paraspinous soft tissue p rominence. Pathologic fractures involving T4 and T6 vertebral bodies are seen. Lytic lesion involving left posterior lateral aspect of T4 vertebral body extending to involve posterior elements is also s een. Deformity involving mid sternum is seen concerning for expansile midsternal lesion and possible pathologic fracture of indeterminate age series 10 image 95.No axillary or supraclavicular adenopathy . Asymmetrically enlarged right thyroid lobe is seen extending to right superior anterior mediastinum . Abdomen: Visualized upper abdominal solid organs appear normal in the early arterial phase of enhanc ement. IMPRESSION: 1. No evidence of pulmonary emboli. No thoracic aortic aneurysm or dissection. 2. Calcified granuloma in right upper lobe and left lower lobe. No suspicious pulmonary nodule or mas s is seen. Suggestion of very mild bone edema and scattered atelectasis in periphery of bilateral dimas g najera. No pleural effusion or pneumothorax. 3. Suggestion of lytic lesions involving T4 and T6 vertebral bodies and posterior medial left sixth r ib with associated left paraspinous soft tissue mass at T6 level concerning for malignant process. Pa thologic compression fractures are also seen involving T4 and T6 vertebral bodies. 4. Age indeterminant pathologic fracture involving mid sternum. 5. Enlarged right thyroid lobe extending to superior anterior mediastinum. CLINICAL RECOMMENDATION STATEMENTS: In patients <35 years with an ITN detected on CT, MRI, or extrathyroidal ultrasound, the Committee re commends further evaluation with dedicated thyroid ultrasound if the nodule is "e1 cm and has no susp icious imaging features, and if the patient has normal life expectancy. In patients "e35 years with an ITN detected on CT, MRI, or extrathyroidal ultrasound, the Committee r ecommends further evaluation with dedicated thyroid ultrasound if the nodule is "e1.5 cm and has no s uspicious imaging features, and if the patient has normal life expectancy. (ACR, 2014) Reviewed by: Ferny Bird MD on 07/01/2021 4:05 PM PDT Approved by: Ferny Bird MD on 07/01/2021 4:05 PM PDT Station ID: [id number]
[2021-07-01 17:18] LABS: B. PARAPERTUSSIS- RESP PCR PAN NOT DETECTED; B. PERTUSSIS- RESP PCR PANEL NOT DETECTED; C. PNEUMONIAE- RESP PCR PANEL NOT DETECTED; CORONAVIRUS 229E-RESP PCR NOT DETECTED; CORONAVIRUS HKU1-RESP PCR NOT DETECTED; CORONAVIRUS NL63-RESP PCR NOT DETECTED; CORONAVIRUS OC43-RESP PCR NOT DETECTED; HUMAN METAPNEUMOVIRUS NOT DETECTED; INFLUENZA A- RESP PCR PANEL NOT DETECTED; INFLUENZA B - RESP PCR PANEL NOT DETECTED; M. PNEUMONIAE- RESP PCR PANEL NOT DETECTED; PARAINFLUENZA VIRUS 1 NOT DETECTED; PARAINFLUENZA VIRUS 2 NOT DETECTED; PARAINFLUENZA VIRUS 3 NOT DETECTED; PARAINFLUENZA VIRUS 4 NOT DETECTED; RHINOVIRUS/ENTEROVIRUS NOT DETECTED; RSV- RESP PCR PANEL NOT DETECTED; SARS-CoV-2 -RESP PCR PANEL NOT DETECTED
== END 2021-07-01 16:50 | disposition home or self-care (01) ==
LOC: ED 13:15
DX: R06.02 Shortness of breath (principal); R53.1 Weakness; I12.9 Hypertensive chronic kidney disease with stage 1 through stage 4 chronic kidney disease, or unspecified chronic kidney disease; N18.9 Chronic kidney disease, unspecified
CPT/HCPCS: 87633; 99283; 99284

== ENCOUNTER 2021-07-12 11:26 | Emergency (ER) | payer MEDICARE ==
[2021-07-12] MEDS ORDERED: SODIUM CHLORIDE 0.9% 1,000 ML IV STA (11:55)
[2021-07-12 12:11] LABS: BILIRUBIN,URINE NEGATIVE (NEGATIVE); GLUCOSE, URINE (UA) NEGATIVE (NEGATIVE); KETONES,URINE (UA) NEGATIVE (NEGATIVE); LEUKOCYTE ESTERASE, URINE TRACE (NEGATIVE); NITRITE,URINE NEGATIVE (NEGATIVE); OCCULT BLOOD,URINE SMALL (NEGATIVE); PROTEIN,URINE 100 mg/dL (NEGATIVE); UROBILINOGEN,URINE 0.2 (NORMAL) E.U./dL (NORMAL)
[2021-07-12 12:12] LABS: CLARITY,URINE HAZY (CLEAR)
[2021-07-12 12:20] LABS: BACTERIA,URINE Few /HPF (None Seen); SQUAMOUS EPITHELIAL CELL,UR FEW Squamous (<= Few)
[2021-07-12 12:21] LABS: AMORPHOUS SEDIMENT,UR Few /LPF; CASTS, URINE 3-5 Granular Casts /LPF
[2021-07-12 13:04] LABS: VBG BASE EXCESS -12.4 mmol/L (-2 - +2); VBG HCO3 14.7 mmol/L (23-28); VBG OXYGEN SATURATION 82.9 % (60-80); VBG PCO2 38.3 mmHg (41-51); VBG PH 7.203 (7.31-7.41); VBG PO2 52.2 mmHg (25-47); VBG TOTAL CO2 15.9 mmol/L (24-29)
[2021-07-12 13:05] LABS: BASOPHILS % (AUTO) 0.2 %; EOSINOPHILS % (AUTO) 1.4 %; HCT - HEMATOCRIT 30.3 % (37.0-47.0); HGB - HEMOGLOBIN 9.6 g/dL (12.0-16.0); LYMPHOCYTES % (AUTO) 11.5 %; MEAN CORPUSCULAR HEMOGLOBIN 31.6 pg (27.0-31.0); MEAN CORPUSCULAR HGB CONC 31.7 g/dL (32.0-36.0); MEAN CORPUSCULAR VOLUME 99.7 fL (81.0-99.0); MONOCYTES % (AUTO) 1.2 %; NEUTROPHILS % (AUTO) 85.2 %; PLT - PLATELET COUNT 244 10^3/uL (130-450); RED BLOOD COUNT 3.04 10^6/uL (4.20-5.40); RED CELL DISTRIBUTION WIDTH 15.5 % (12.0-15.0); WHITE BLOOD COUNT 4.3 x10^3/uL (4.8-10.8)
[2021-07-12 13:10] LABS: ABNORMAL LYMPHS % (MANUAL) 0 %
[2021-07-12 13:17] LABS: ALBUMIN 2.6 g/dL (3.2-5.5); ALBUMIN/GLOBULIN RATIO 0.7 (1.0-2.2); BILIRUBIN,TOTAL 0.5 mg/dL (0.2-1.0); CALCIUM 7.6 mg/dL (8.5-10.3); CREATININE 3.5 mg/dL (0.4-1.0); MAGNESIUM 2.4 mg/dL (1.7-2.8); PHOSPHORUS 3.7 mg/dL (2.5-4.6); POTASSIUM 5.1 mmol/L (3.5-5.0); TOTAL PROTEIN 6.3 g/dL (6.7-8.2)
[2021-07-12 13:41] LABS: BAND NEUTROPHILS % (MANUAL) 2 %; EOSINOPHILS # (MANUAL) 0.2 10^3/uL (0-0.7); LYMPHOCYTES # (MANUAL) 0.5 10^3/uL (1.5-3.5); LYMPHOCYTES % (MANUAL) 12 %; MONOCYTES # (MANUAL) 0.1 10^3/uL (0.0-1.0); NEUTROPHILS # (MANUAL) 3.5 10^3/uL (1.5-6.6); RBC MORPHOLOGY (MULTIPLE) 1+ ROULEAUX (NORMAL)
[2021-07-12 13:42] LABS: DIFFERENTIAL COMMENT MANUAL DIFFERENTIAL; WBC MORPHOLOGY (MULTIPLE) 1+ DOHLE BODIES (NORMAL)
--- NOTE | 2021-07-12 13:59 | ED Physician Documentation ---
History of Present Illness - Stated complaint Stated Complaint: CREATININE HIGH - Chief complaint Chief Complaint: General - History obtained from History obtained from: Patient - History of Present Illness Timing: Today - Additonal information Additional information: Humaira Bourne is an 86-year-old female who has been diagnosed with multiple myeloma. She has received some directed radiation therapy to the L2 vertebral body for disease there. She has become less interested in food and water and has had a difficult time staying hydrated. She was evaluated in the emergency department 11 days ago and at that time had a creatinine of 1.5. She had CT angio of the chest done that day and on her next visit to the oncologist her creatinine was 3.5 and despite IV hydration on 2 separate visits and administration of blood products the patient's creatinine remains at 3.5. The oncologist has asked the emergency department to evaluate the patient for admis natacha to the hospital for failure to thrive. Review of Systems Constitutional: denies: Fever Eyes: denies: Decreased vision Ears: denies: Ear pain Nose: denies: Congestion Throat: denies: Sore throat Cardiac: denies: Chest pain / pressure, Palpitations Respiratory: reports: Dyspnea. denies: Cough GI: denies: Abdominal Pain, Nausea, Vomiting, Constipation, Diarrhea : denies: Dysuria, Frequency Skin: denies: Rash Musculoskeletal: reports: Back pain. denies: Neck pain, Extremity pain Neurologic: reports: Generalized weakness. 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 : None Psych: Anxiety Musculoskeletal: Osteoarthritis, Scoliosis Derm: Herpes zoster - Past Surgical History Past Surgical History: Yes General: Cholecystectomy Ortho: Knee replacement, Spine surgery - Present Medications Home Medications: Ambulatory Orders Medication Instructions Recorded Confirmed Aspirin [Adult Aspirin Regimen] 81 mg pe PO DAILY 10/12/18 07/12/21 Gabapentin 600 mg PO BID 10/12/18 07/12/21 Multivit with Minerals/Lutein 1 tab PO DAILY 10/12/18 07/12/21 [Theratrum Complete 50 Plus Tab] Simvastatin [Zocor] 40 mg PO QPM 10/12/18 07/12/21 lisinopriL [Lisinopril] 20 mg PO DAILY 10/12/18 07/12/21 Lenalidomide [Revlimid] 10 mg ORAL DAILY 07/03/21 07/12/21 dexAMETHasone [Decadron] 4 mg PO DAILY 07/12/21 07/12/21 - Allergies Allergies/Adverse Reactions: Allergies Allergy/AdvReac Type Severity Reaction Status Date / Time ticlopidine [From Ticlid] Allergy Anaphylaxis Verified 07/12/21 11:38 - Social History Does the pt smoke?: No Smoking Status: Never smoker Does the pt drink ETOH?: No Does the pt have substance abuse?: No - Immunizations Immunizations are current?: Yes PD ED PE NORMAL - Vitals Vital signs reviewed: Yes (hypertensive with wide pulse pressure) - General General: Alert and oriented X 3, No acute distress, Well developed/nourished, Other (dry mucous membranes ) - HEENT HEENT: Atraumatic, PERRL, EOMI - Neck Neck: Supple, no meningeal sign, No bony TTP - Cardiac Cardiac: RRR, No murmur - Respiratory Respiratory: No respiratory distress, Clear bilaterally - Abdomen Abdomen: Normal bowel sounds, Soft, Non tender, Non distended, No organomegaly - Back Back: No CVA TTP, No spinal TTP - Derm Derm: Normal color, Warm and dry, No rash - Extremities Extremities: No deformity, No edema - Neuro Neuro: Alert and oriented X 3, 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, No motor deficit, No sensory deficit, Normal speech Eye Opening: Spontaneous Motor: Obeys Commands Verbal: Oriented GCS Score: 15 - Psych Psych: Normal mood, Normal affect Results - Vitals Vitals: Vital Signs - 24 hr 07/12/21 07/12/21 11:30 15:45 Temperature 36.8 C 37.8 C Heart Rate 87 87 Respiratory 18 20 Rate Blood Pressure 136/56 H 154/60 H O2 Saturation 100 99 Oxygen O2 Source Room air - Labs Labs: Laboratory Tests 07/12/21 07/12/21 07/12/21 11:15 12:40 12:58 WBC 4.3 L RBC 3.04 L Hgb 9.6 L Hct 30.3 L MCV 99.7 H MCH 31.6 H MCHC 31.7 L RDW 15.5 H Plt Count 244 MPV 10.0 Neut # (Auto) Not Reportable Lymph # (Auto) Not Reportable [place] # (Auto) Not Reportable Eos # (Auto) Not Reportable Baso # (Auto) Not Reportable Absolute Nucleated RBC Not Reportable Total Counted 100 Band Neuts % (Manual) 2 Abnorm Lymph % (Manual) 0 Nucleated RBC % Not Reportable Neutrophils # (Manual) 3.5 Lymphocytes # (Manual) 0.5 L Monocytes # (Manual) 0.1 Eosinophils # (Manual) 0.2 Basophils # (Manual) 0.0 Differential Comment MANUAL DIFFERENTIAL WBC Morphology 1+ DOHLE BODIES RBC Morph Micro Appear 1+ [place] VBG pH VBG pCO2 VBG pO2 VBG HCO3 VBG Total CO2 VBG O2 Saturation VBG Base Excess Sodium 135 Potassium 5.1 H Chloride 107 Carbon Dioxide 17 L Anion Gap 11.0 BUN 60 H Creatinine 3.5 H Estimated GFR (MDRD) 12 L Glucose 98 Calcium 7.6 L Phosphorus 3.7 Magnesium 2.4 Total Bilirubin 0.5 AST 39 ALT 56 Alkaline Phosphatase 109 Total Protein 6.3 L Albumin 2.6 L Globulin 3.7 Albumin/Globulin Ratio 0.7 L Urine Color YELLOW Urine Clarity HAZY Urine pH 6.0 Ur Specific [place] 1.015 Urine Protein 100 H Urine Glucose (UA) NEGATIVE Urine Ketones NEGATIVE Urine Occult Blood SMALL H Urine Nitrite NEGATIVE Urine Bilirubin NEGATIVE Urine Urobilinogen 0.2 (NORMAL) Ur Leukocyte Esterase TRACE H Urine RBC 6-10 H Urine WBC 4-5 Ur Squamous Epith Cells FEW Squamous Amorphous Sediment Few Urine Bacteria Few Urine Casts 3-5 Granular Casts Ur Microscopic Review INDICATED Urine Culture Comments INDICATED 07/12/21 07/12/21 12:58 16:49 WBC RBC Hgb Hct MCV MCH MCHC RDW Plt Count MPV Neut # (Auto) Lymph # (Auto) [place] # (Auto) Eos # (Auto) Baso # (Auto) Absolute Nucleated RBC Total Counted Band Neuts % (Manual) Abnorm Lymph % (Manual) Nucleated RBC % Neutrophils # (Manual) Lymphocytes # (Manual) Monocytes # (Manual) Eosinophils # (Manual) Basophils # (Manual) Differential Comment WBC Morphology RBC Morph Micro Appear VBG pH 7.203 L VBG pCO2 38.3 L VBG pO2 52.2 H VBG HCO3 14.7 L VBG Total CO2 15.9 L VBG O2 Saturation 82.9 H VBG Base Excess -12.4 L Sodium 138 Potassium 5.3 H Chloride 109 Carbon Dioxide 18 L Anion Gap 11.0 BUN 55 H Creatinine 3.3 H Estimated GFR (MDRD) 13 L Glucose 101 H Calcium 7.6 L Phosphorus Magnesium Total Bilirubin AST ALT Alkaline Phosphatase Total Protein Albumin Globulin Albumin/Globulin Ratio Urine Color Urine Clarity Urine pH Ur Specific [place] Urine Protein Urine Glucose (UA) Urine Ketones Urine Occult Blood Urine Nitrite Urine Bilirubin Urine Urobilinogen Ur Leukocyte Esterase Urine RBC Urine WBC Ur Squamous Epith Cells Amorphous Sediment Urine Bacteria Urine Casts Ur Microscopic Review Urine Culture Comments Procedures - IVC sono (time) 1145 Bedside IVC sono: IVC measures (cm) (1.21), Dehydration (est 1 liter deficit after one liter is in.) PD MEDICAL DECISION MAKING - ED course Complexity details: reviewed old records, reviewed results, re-evaluated patient, considered differential, d/w patient ED course: 86 y/o female with a history of Multiple myeloma has Urgent radiation therapy to her thoracic lumbar spine in the month of May and she is now beginning to start her treatment for multiple myeloma and she was noted by her oncologist to have an elevated creatinine. Her creatinine went from 1.5-3.5 following the administration of contrast for a angiogram of the chest to rule out pulmonary embolism. She has been hydrated in the MAC clinic two days ago and got blood yesterday and further fluid today. She arrived to the ED after receiving one liter of saline in the MAC clinic this morning and despite this her IVC is still 1.21 consistent with an additional liter deficit. She is administered a second liter of saline here and her creatinine reduces to 3.3., bun from [address] Edmondson is consulted in the case and after consultation with the hospitalist and confirmation of the dye load it is elected to treat the patient conservatively and she is discharged to home to hydrate and followup with expectation of continued improvement in renal function. Departure - Departure Disposition: 01 Home, Self Care Clinical Impression: Dehydration, Contrast dye induced nephropathy Instructions: ED Dehydration Follow-Up: Robert Jaimes DO [Primary Care Provider] - Comments: Humaira, today it looks like you have not been taking in enough fluids on a regular basis and are dehydrated. In addition it looks like there is some damage to your kidney from a contrast study that was done for pulmonary embolism. This will take some time for the kidneys to recover fully and today they look like there has been some improvement. Hydration is important to continued recovery and the recommendation is drink at least 750ml of fluid daily. Follow up with Dr. Edmondson as planned next week.
[2021-07-12 17:04] LABS: CALCIUM 7.6 mg/dL (8.5-10.3); CREATININE 3.3 mg/dL (0.4-1.0); POTASSIUM 5.3 mmol/L (3.5-5.0)
[2021-07-12 17:32] VITALS: BP 154/61
== END 2021-07-12 17:53 | disposition home or self-care (01) ==
LOC: ED 11:26
DX: T50.8X1A Poisoning by diagnostic agents, accidental (unintentional), initial encounter (principal); N14.1 Nephropathy induced by other drugs, medicaments and biological substances; C90.00 Multiple myeloma not having achieved remission; E86.0 Dehydration; I10 Essential (primary) hypertension
CPT/HCPCS: 36415; 80048; 80053; 81001; 81003; 82803; 83735; 84100; 85025; 87086; 99283; 99284

== ENCOUNTER 2021-07-24 13:50 | Outpatient (CLI) | payer MEDICARE | END 2021-07-24 13:51 | disposition EMS.NT | LOC: EMS 13:50 | DX: Z03.89 Encounter for observation for other suspected diseases and conditions ruled out (principal) ==